=== PATIENT | female | born 1970 | race African-American/Black ===

== ENCOUNTER 2023-07-29 15:13 | Outpatient (CLI) | payer OTHER, SELFPAY ==
--- NOTE | ~2023-07-29 | XR_ITS ---
XR lumbar spine 6V w bending DATE: 07/29/2023 15:54 INDICATION: Back pain TECHNIQUE: AP, lateral, flexion and extension lateral, coned lateral lumbosacral and bilateral obliqu e views COMPARISON: None FINDINGS: There is 17 degrees levoscoliosis measured from T12 to L4. Diffuse osteopenia. No fracture or bone destruction. No instability on flexion or extension. The included lower thoracic and lumbar pedicles are intact. No spondylolysis or spondylolisthesis. Lumbar and lumbosacral interspaces appear well preserved. The sacroiliac joints are intact. IMPRESSION: 17 degrees levoscoliosis Osteopenia Reviewed, dictated and finalized at location L. PULATIVE THERAPY SPECIALIST
--- NOTE | ~2023-07-29 | XR_ITS ---
XR shoulder RT min 2V DATE: 07/29/2023 15:54 INDICATION: Right shoulder pain TECHNIQUE: 3 views COMPARISON: None FINDINGS: No fracture or dislocation, periosteal reaction or bone destruction. There is mild degenera tive change of the right acromioclavicular joint. Right cervical rib. No abnormal right shoulder soft tissue calcification. IMPRESSION: Right cervical rib Mild degenerative change at right acromioclavicular joint Reviewed, dictated and finalized at location L. LOPE PATTERNMAKER
--- NOTE | ~2023-07-29 | XR_ITS ---
XR hip BI 2V w AP pelvis DATE: 07/29/2023 15:54 INDICATION: Hip pain TECHNIQUE: AP pelvis. AP and lateral views of each hip. COMPARISON: None FINDINGS: Normal alignment at the pubic symphysis and sacroiliac joints. No pelvic fracture or bone d estruction is detected. No fracture or dislocation, avascular necrosis or bone destruction of either hip is detected. Mild as ymmetric left hip joint space narrowing. IMPRESSION: Mild asymmetric left hip joint space narrowing consistent with mild left hip osteoarthrit is Reviewed, dictated and finalized at location L. CS OFFICER IMPRESSION: Mild asymmetric left hip joint space narrowing consistent with mild left hip osteoarthritis
--- NOTE | ~2023-07-29 | XR_ITS ---
XR shoulder LT min 2V DATE: 07/29/2023 15:54 INDICATION: Left shoulder pain TECHNIQUE: 4 views COMPARISON: None FINDINGS: There is mild degenerative spurring at the left acromioclavicular joint. Mild narrowing at the left glenohumeral joint suggesting mild left glenohumeral osteoarthritis No fracture or dislocation, periosteal reaction or bone destruction or abnormal soft tissue calcifica tion of the left shoulder is evident. Left cervical rib. IMPRESSION: Left cervical rib Mild degenerative change of the left acromioclavicular joint and left glenohumeral joint Reviewed, dictated and finalized at location L. ING AND RESIDENCE LIFE DIRECTOR IMPRESSION: Left cervical rib Mild degenerative change of the left acromioclavicular joint and left glenohume ral joint
== END 2023-07-29 15:14 | disposition home or self-care (01) ==
LOC: ANHIMG 15:21
PROVIDERS: Visit Provider Anesthesiology Pain Medicine
DX: M25.511 Pain in right shoulder (principal); M54.9 Dorsalgia, unspecified; M46.1 Sacroiliitis, not elsewhere classified; M25.559 Pain in unspecified hip; M25.512 Pain in left shoulder; M41.86 Other forms of scoliosis, lumbar region; M85.88 Other specified disorders of bone density and structure, other site; Q76.5 Cervical rib
CPT/HCPCS: 72114; 73030; 73521

== ENCOUNTER 2023-11-23 09:07 | Outpatient (CLI) | payer OTHER, SELFPAY ==
--- NOTE | ~2023-11-23 | MR_ITS ---
MRI of the lumbar spine Clinical History: Spinal stenosis Technique: Axial T2-weighted images, and sagittal T1-weighted, T2-weighted, and and T2 fat-sat images were acquired. Findings: There is no fracture or subluxation of the lumbar spine. Vertebral bodies maintain normal h eight and alignment. No bone marrow signal abnormality seen. There is no significant disc bulge or herniation at any lumbar level. There is moderate facet arthrop athy at L1-L2. There is severe facet arthropathy throughout the remainder of the lumbar spine. No fra nk central canal stenosis seen. Probable minimal bilateral neural foraminal narrowing at L4-L5 and on the left side at L5-S1. Probable moderate neural foraminal narrowing of the right-sided L5-S1. Remai lida neural foramina appear intact. Paravertebral soft tissues are unremarkable. Impression: [id number] degenerative spondylosis, as above. Reviewed, dictated and finalized at [facility]. Impression: [id number] degenerative spondylosis, as above.
== END 2023-11-23 09:08 | disposition home or self-care (01) ==
PROVIDERS: Visit Provider Anesthesiology Pain Medicine
DX: M47.27 Other spondylosis with radiculopathy, lumbosacral region (principal)
CPT/HCPCS: 72148

== ENCOUNTER 2023-12-31 13:57 | Outpatient (CLI) | payer OTHER, SELFPAY ==
--- NOTE | ~2023-12-31 | MR_ITS ---
MRI of the cervical spine Clinical History: Cervical radiculopathy Technique: Axial T2-weighted and gradient images, and sagittal T1-weighted, T2-weighted, and STIR saúl ges were acquired. Findings: There is reversal normal cervical lordosis. Probable minimal grade 1 anterolisthesis of C4 on C5. No fracture seen. No suspicious bone marrow signal abnormality seen. At C2-C3, there is no significant disc bulge or herniation. No spinal canal stenosis, cord compressio n, or neural foraminal narrowing. At C3-C4, there is minimal disc osteophyte complex. No spinal canal stenosis, cord compression, or ne ural foraminal narrowing. At C4-C5, there is minimal disc osteophyte complex. There is no canal stenosis, cord compression, or neural foraminal narrowing. At C5-C6, there is moderate degenerative disc narrowing. There is mild disc osteophyte complex. Possi ble minimal flattening the ventral cord. Probable mild right neural foraminal narrowing. Left neural foramen preserved. At C6-C7, there is minimal disc osteophyte complex. No canal stenosis, cord compression, or neural fo raminal narrowing. No abnormal signal seen in the spinal cord. Paravertebral soft tissues are unremarkable. Impression: [id number] degenerative spondylosis at C5-C6, as detailed above. Reversal of the normal cervical lordosis. Reviewed, dictated and finalized at [facility]. Impression: [id number] degenerative spondylosis at C5-C6, as detailed above. Reversal of the normal cervical lordosis.
--- NOTE | ~2023-12-31 | XR_ITS ---
Cervical Spine: AP, lateral, oblique, open-mouth views Clinical History: Pain Findings: There is reversal normal cervical lordosis. No fracture or subluxation seen. There is moder ate degenerative disc narrowing at C4-C5 and C5-C6. No instability evident on flexion or extension. P re-vertebral soft tissues are unremarkable. Impression: Reversal of the normal cervical lordosis with degenerative disc disease at C4-C5 and C5-C6. Reviewed, dictated and finalized at location . Impression: Reversal of the normal cervical lordosis with degenerative disc disease at C4-C 5 and C5-C6.
== END 2023-12-31 13:58 | disposition home or self-care (01) ==
LOC: ANHIMG 14:02
PROVIDERS: Visit Provider Anesthesiology Pain Medicine
DX: M47.892 Other spondylosis, cervical region (principal); M40.50 Lordosis, unspecified, site unspecified; G89.29 Other chronic pain
CPT/HCPCS: 72050; 72141

== ENCOUNTER 2024-02-17 08:53 | Day surgery (SDC) | payer OTHER, SELFPAY ==
[2024-02-02 12:27] VITALS: BMI 24.9
--- NOTE | ~2024-02-17 | XR_ITS ---
EXAMINATION: XR fluoroscopy no charge DATE: 02/17/2024 09:57 INDICATION: Lumbosacral radiculopathy. TECHNIQUE: 101 intraoperative fluoroscopic views of the lumbar spine were obtained. I was not present . Fluoroscopy exposure time was 42 seconds. COMPARISON: Lumbar spine MRI 11/23/2023 FINDINGS: There is mild lumbar spondylosis. Bilateral transforaminal epidural injections are seen. IMPRESSION: 1. Bilateral transforaminal lumbar epidural injections. 2. Mild lumbar spondylosis. Reviewed, dictated and finalized at location A.
--- NOTE | 2024-02-17 08:30 | WPDHPUPDATE1 ---
History and Physical Update Update Date/Time: 02/17/24 08:30 History and Physical has been reviewed, including an updated exam of the patient. There are NO changes in the patient's condition. Risks, benefits, and alternatives have been discussed and questions answered. Patient agrees to proceed with procedure.
--- NOTE | 2024-02-17 08:32 | W.PM.PROC2 ---
Procedure Note - Detailed Date of Procedure 02/17/24 Pre-op Diagnosis Lumbosacral Radiculopathy Post-op Diagnosis Same Procedure Performed [Right Left] [Lumbar] Transforaminal Epidural Steroid Injection under Fluoroscopic Guidance and with Contrast Control at [L4-5, L5-S1]. Surgeon Kali Johnson MD Anesthesia Local Description of Procedure INFORMED CONSENT: Risks, benefits and alternatives to the procedure were discussed in detail with the patient who expressed explicit understanding and consent to proceed. Patient was informed verbally and in written form regarding the risks associated with the procedure including the low risk of serious infection, bleeding/bruising, allergic reaction, nerve or organ injury, paralysis, procedural site pain or discomfort, worsening pain and/or mobility, failure to treat and/or disfigurement. The patient expressed explicit understanding and consent to proceed. All materials required for the procedure were available prior to procedure start. Site and side was marked prior to procedure and confirmed in the presence of the patient. PROCEDURE IN DETAIL: The patient was brought to the procedural suite and placed in the prone position. Patient was made comfortable with use of pillows under the head/chest, hips and ankles. Skin overlying the injection site was prepared broadly with ChloraPrep applicator and draped in a sterile manner. Aseptic technique was employed throughout. The endplates of the vertebral body at the site of interest were aligned in the AP view. Ipsilateral oblique angulation was utilized to better visualize the neuroforamen of interest. Local anesthesia was established by infiltration with approximately 5 mL of 0.5% PF lidocaine via a 1-1/2 inch 27-gauge needle. A 22-gauge 3.5 inch Laex (pencil point) spinal needle was advanced until the needle approached the 6 o'clock position on the pedicle just superior to the exiting nerve root. on the right at L4-5. Lateral view was utilized to confirm appropriate position of the needle tip within the superior and posterior portion of the respective foramen. In an AP view, 1 mL of Omnipaque 300 contrast medium was injected after negative aspiration for CSF, blood or other bodily fluid, showing appropriate neurogram without evidence of intravascular or intrathecal spread of contrast. Digital subtraction imaging was used with an additional 1ml of the same contrast medium to confirm absence of intravascular contrast spread. A 1mL solution containing 3 mg of betamethasone was injected after negative repeat aspiration. Appropriate spread of the injectate was confirmed with washout of previously injected contrast. No parasthesias were elicited. Needle was removed completely intact without difficulty. [The same exact procedure was repeated for all remaining levels on the ipsilateral side, right L5-S1 neuroforamen, modified as necessary to accommodate for the new target location with identical findings and results and no evidence of complication.] [The same exact procedure was repeated for all remaining levels on the contralateral side, left L4-5, L5-S1 neuroforamen, modified as necessary to accommodate for the new target location with identical findings and results and no evidence of complication.] Images were saved and documented in the patient chart. Patient's skin was cleaned and sterile bandage applied. The patient tolerated the procedure well. The patient was transported to the recovery area in stable condition where they were observed for an appropriate amount of time prior to discharge, without evidence of complication. The patient was instructed to avoid excessive activity for the next 48 hours, including climbing and frequent use of stairs. Showers only for 48 hours. They were instructed not to drive or operate heavy machinery for 24 hours. They are to monitor for severe headaches, fevers, chills, night sweats, erythema/swelling at the site or any other signs of infection, bl
[2024-02-17 09:16] VITALS: BP 127/87; PULSE 63; RESP 18; TEMP 37.2; O2SAT 100; BMI 25.2
[2024-02-17 09:42] VITALS: BP 171/98; PULSE 63; RESP 15; O2SAT 97
[2024-02-17] MEDS: LIDOCAINE HCL 1% PF INJ 5 ML VIAL 3 ML INFILTRATE (09:45)
[2024-02-17 09:46] VITALS: BP 1611/67; PULSE 63; RESP 11; O2SAT 100
[2024-02-17 09:52] VITALS: BP 159/93; PULSE 63; RESP 12; O2SAT 100
[2024-02-17] MEDS: BETAMETHASONE SODIUM PHOSPHATE PF INJ 6 MG/ML VIAL 12 MG INFILTRATE (09:52)
[2024-02-17] MEDS: LIDOCAINE HCL 2% PF INJ 5 ML VIAL 2 ML INFILTRATE (09:52)
[2024-02-17 09:57] VITALS: BP 139/92; PULSE 68; RESP 14; O2SAT 100
== END 2024-02-17 10:14 | disposition home or self-care (01) ==
PROVIDERS: Visit Provider Anesthesiology Pain Medicine
PROC: (CPT 64483; principal; 2024-02-17 10:00)
DX: M54.17 Radiculopathy, lumbosacral region (principal)
CPT/HCPCS: 64483 ×2; 64484 ×2; 99199

== ENCOUNTER 2024-07-06 07:30 | Day surgery (SDC) | payer OTHER, SELFPAY ==
--- NOTE | ~2024-07-06 | XR_ITS ---
INTRAOPERATIVE FLUOROSCOPY: CLINICAL HISTORY: 53 years old Female; DIAG/PROG YENY L3,L4,L5 BRANCH/DORSAL RAMUS NERVE BLK PROCEDURE COMMENTS: Limited intraoperative fluoroscopy of the lumbar spine was performed. CUMULATIVE DOSE: 6.70 mGy FLUOROSCOPY TIME: 25.6 seconds FINDINGS/IMPRESSION: Intraoperative fluoroscopic views demonstrate contrast . Please refer to operative note for further details. Reviewed, dictated and finalized at location A. O TECHNICIAN
--- NOTE | 2024-07-06 05:47 | PM.HPGS ---
History of Present Illness History of Present Illness Consent: Risks, benefits, and alternatives have been discussed and questions answered. Patient agrees to proceed with procedure. Chief complaint: lumbosacral spondylosis, chronic low back pain Narrative: Celeste Montero is a 53 year old female with chronic, recalcitrant and disabling bilateral lumbosacral back pain secondary to degenerative spondylosis with failure to respond to aggressive conservative measures including PT, oral and topical analgesics, opioid and nonopioid analgesics, rest, time and activity/behavioral modification over the past 1-2 years who presents for diagnostic/prognostic medial branch blocks of the bilateral L3, L4, L5 medial branches/dorsal ramus(#1) addressing the ipsilateral L4-5, L5-S1 facet joints under fluoroscopic guidance and with contrast control. Review of Systems Review of Systems: Patient denies any new infectious, allergic, cardiopulmonary, neurologic or constitutional symptoms or changes in activity tolerance or exercise capacity including new or progressive SOB/MADISON, peripheral edema, productive cough, dysuria, nausea/vomiting, diarrhea, weight change, fevers/chills/night sweats, new or progressive neurologic deficit, cognitive or mood changes since last seen, except as documented in the HPI. All systems reviewed & are unremarkable except as noted in HPI and below PMFSH Past Medical History Medical History Anxiety Asthma Chronic back pain HTN (hypertension), benign Pernicious anemia Vitamin D deficiency Surgical History Surgical History H/O prior ablation treatment Family History Family History Grandparent Breast cancer Father Hypertension Mother Hypertension Social History Social History Smoking status: Never smoker Second hand tobacco smoke exposure: Yes Alcohol intake: current Alcohol use details: rarely, special occasions Substance use: never Substance use type: does not use Current Housing: Decline to Answer Concerned About Future Housing: Decline to Answer Difficulty Paying Gas/Electric Bills: Decline to Answer Difficulty Paying for Meds: Decline to Answer Currently Unemployed: Decline to Answer Education: Decline to Answer Difficulty w/ Childcare or Family Care: Decline to Answer Living arrangements: with family Spiritual care concerns: No Meds Home Medications and Allergies Home Medications ?Medication ?Instructions ?Recorded ?Confirmed ?Type gabapentin 300 mg capsule 300 mg PO TID 07/29/23 06/14/24 History hydrochlorothiazide 25 mg tablet 25 mg PO DAILY 07/29/23 06/14/24 History mecobalamin (vitamin B12) 10,000 10,000 mcg subcut MONTHLY 07/29/23 06/14/24 History mcg solution for injection meloxicam 15 mg tablet 15 mg PO DAILY 07/29/23 06/14/24 History omeprazole 40 mg capsule,delayed 40 mg PO DAILY 07/29/23 06/14/24 History release albuterol sulfate 90 mcg/actuation 2 puff inhalation Q4H PRN 02/02/24 06/14/24 History aerosol inhaler Shortness Of Breath cyclobenzaprine 10 mg tablet 10 mg PO ONCE 05/25/24 06/14/24 History Allergies Allergy/AdvReac Type Severity Reaction Status Date / Time Penicillins Allergy Hives Verified 06/14/24 13:43 Exam Narrative: The patient's physical exam is essentially unchanged from prior examination on 05/25/2024. Specifically, patient demonstrates normal lung capacity, tidal volume and respiratory rate without wheezes, crackles, rales or rubs. Heart rate and rhythm are regular without murmurs, gallops or rubs. No JVD. Pulses 2+ globally without increasing peripheral edema. AAOx3 with no evidence of confusion, intoxication or altered mental state, NC/AT without acute distress or altered consciousness. Speech, cognition, mood, insight and judgment at baseline and within normal limits. Assessment and Plan Assessment and plan (1) Lumbosacral spondylosis without myelopathy: Code(s): M47.817 - Spondylosis without myelopathy or radiculopathy, lumbosacral region Status: Acute (2) Chronic pain: Code(s): G89.29 - Other chronic pain Status: Acute (3) Dorsalgia: Code(s): M54.9 - Dorsalgia, unspecified Status: Acute Plan proceed as planned with diagnostic / prognostic lumbar medial branch blocks at L3, L4, L5 ( # 1) addressing the bilateral L4-5, L5-S1 facet joints under fluoroscopic guidance with contrast control to address chronic low back pain secondary to lumbosacral spondylosis
--- NOTE | 2024-07-06 05:50 | WPDHPUPDATE1 ---
History and Physical Update Update Date/Time: 07/06/24 05:50 History and Physical has been reviewed, including an updated exam of the patient. There are NO changes in the patient's condition. Risks, benefits, and alternatives have been discussed and questions answered. Patient agrees to proceed with procedure.
--- NOTE | 2024-07-06 05:51 | W.PM.PROC2 ---
Procedure Note - Detailed Date of Procedure 07/06/24 Pre-op Diagnosis lumbosacral spondylosis, chronic low back pain Post-op Diagnosis Same Procedure Performed Diagnostic bilateral Lumbar Medial Branch/Dorsal Ramus Blocks at L3, L4, L5 Treating the bilateral L4-5, L5-S1 Facet Joints Under Fluoroscopic Guidance and with Contrast Control. ( 4 levels blocked). Surgeon Kali Johnson MD Blower Room Attendant None. Anesthesia Local Description of Procedure INFORMED CONSENT: Risks, benefits and alternatives to the procedure were discussed in detail with the patient who expressed explicit understanding and consent to proceed. Patient was informed verbally and in written form regarding the risks associated with the procedure including the low risk of serious infection, bleeding/bruising, allergic reaction, nerve or organ injury, paralysis, procedural site pain or discomfort, worsening pain and/or mobility, failure to treat and/or disfigurement. The patient expressed explicit understanding and consent to proceed. All materials required for the procedure were available prior to procedure start. Site and side were marked prior to procedure and confirmed in the presence of the patient. PROCEDURE IN DETAIL: The patient was brought to the procedural suite and placed in the prone position. Patient was made comfortable with use of pillows under the head/chest, hips and ankles. Skin overlying the injection site on the affected side(s) was prepared broadly with ChloraPrep applicator and draped in a sterile manner. Aseptic technique was used throughout. The endplates of the vertebral bodies at the site(s) of interest were aligned in the AP view. Ipsilateral oblique angulation was utilized to optimize visualization of the intersection between the superior articulating process and transverse process at each target site. Local anesthesia was established by infiltration with approximately 5 mL of 1% lidocaine via a 1-1/2 inch 27-gauge needle. A 25-gauge 5.0 inch Quincke spinal needle was advanced until the needle tip contacted periosteum at the target site, right L3. Lateral view was utilized to confirm the appropriate placement of the needle tip just anterior to the facet line and superior to the pedicle. In the Lateral view, 0.25 mL of Omnipaque 300 contrast medium was injected after negative aspiration for CSF, blood or other bodily fluid, showing appropriate extra-articular spread of contrast without evidence of intravascular, foraminal or intrathecal placement. A 0.5 mL solution of 0.5% PF bupivacaine was injected after negative repeat aspiration. Appropriate spread of the injectate was confirmed with washout of previously injected contrast. No parasthesias were elicited. Needle was removed completely intact without difficulty. The same exact procedure was repeated for all remaining levels on the ipsilateral side, right L4, L5 medial branches/dorsal ramus, modified as necessary to accommodate for the new target location with identical findings and results and no evidence of complication. The same exact procedure was repeated for all remaining levels on the contralateral side, left L3, L4, L5 medial branches/dorsal ramus, modified as necessary to accommodate for the new target location with identical findings and results and no evidence of complication. Images were saved and documented in the patient chart. Patient's skin was cleaned and sterile bandage applied. The patient tolerated the procedure well. The patient was transported to the recovery area in stable condition where they were observed for an appropriate amount of time prior to discharge, without evidence of complication. Patient was instructed on the appropriate completion of a pain diary over the next 12-24 hours. The patient was instructed to avoid excessive activity for the next 48 hours, including climbing and frequent use of stairs. Showers only for 48 hours. They were instructed not to drive or operate heavy machinery for 24 hours. They are to monitor for severe headaches, fevers, chills, night sweats, erythema/swelling at the site or any other signs of infection, bleeding/bruising, bowel or bladder changes as well as new pain, weakness or numbness in the upper or lower extremity. Should they notice these changes, they are instructed to call our office immediately or report directly to the nearest Emergency Department if no answer or if after posted office hours. COMPLICATIONS: None COMMENTS: None CONTRAST WASTED: 28.5mL Omnipaque 300. Complications No immediate complications Condition Stable Disposition Same day [facility] Billing Surgery - Charge Forward: Surgery Billing
[2024-07-06 08:43] VITALS: BP 141/92; PULSE 89; RESP 18; O2SAT 100
[2024-07-06 09:26] VITALS: BP 150/93; PULSE 90; RESP 24; O2SAT 99
[2024-07-06 09:36] VITALS: BP 147/96; PULSE 82; RESP 25; O2SAT 100
[2024-07-06] MEDS: BUPivacaine HCL 0.5% 10 ML AMP INFILTRATE (09:38)
[2024-07-06] MEDS: LIDOCAINE 1% PF INJ 5 ML VIAL XX (09:38)
[2024-07-06 09:43] VITALS: BP 119/91; PULSE 78; RESP 16; O2SAT 100
--- OUTSIDE RECORDS SUMMARY | 2024-07-08 16:08 | XMS_ITS | Patient Health Summary ---
Author Organization [facility] Scientific Address [address] [place] [address] Care Team Providers Care User Experience Researcher Name Role Phone Warren Pardo MD Primary Care Provider [phone] Note from [facility],non-owned Affiliates and Associated Physician Practices is amultiple site organization consisting of ambulatory clinics and hospital sitesin [place], [place], [place] and [place]. This disclosure is being madepursuant to the Care Everywhere program and may not contain all information available regarding this patient. Last updated 18.[facility] Allergies * Penicillins(Rash,Itching) -Medium Criticality Medications * Be aware that medications may not be up to date on this document. Alwaysverify current medications with the patient. * albuterol HFA (PROVENTIL; VENTOLIN; PROAIR) 108 (90 Base) MCG/ACT inhaler (Started 08/30/2020) Inhale 2 puffs by mouth every 6 hours as needed * baclofen (LIORESAL) 10 MG tablet(Started 10/15/2021) Take 10 mg by mouth 3 times daily as needed * diphenhydrAMINE (BENADRYL) 25 MG capsule Take 25 mg by mouth as directed * vitamin D, ergocalciferol, (DRISDOL) 1.25 MG (73959 UT) capsule(Started 10/15/2021) Take 50,000 Units by mouth as directed * gabapentin (NEURONTIN) 300 MG capsule(Started 10/15/2021) Take 300 mg by mouth 3 times daily * hydroCHLOROthiazide (HYDRODIURIL) 25 MG tablet(Started 08/30/2021) Take 25 mg by mouth once daily * traMADol (ULTRAM) 50 MG tablet(Started 10/12/2021) Take 50 mg by mouth every 6 hours as needed * fluticasone propionate (FLONASE) 50 MCG/ACT nasal spray(Started 07/27/2021) Baker 1-2 sprays into each nostril once daily * meloxicam (Mobic) 15 MG tablet(Started 10/28/2023) TAKE 1 TABLET BY MOUTH EVERY DAY. DO NOT TAKE WITH NAPROXEN TABLETS 1 refill by 10/27/2024 Active Problems No known active problems Social History Tobacco Use Types Packs/Day Years Used Date Smoking Tobacco: Never Smokeless Tobacco: Never Sex and Gender Information Value Date Recorded Sex Assigned at Not on file Gender Identity Not on file Sexual Orientation Not on file Last Filed Vital Signs Vital Sign Reading Time Taken Comments Blood Pressure 115/81 11/19/2020 7:38 PM CDT Pulse 77 11/19/2020 7:38 PM CDT Temperature 36.8 ??C (98.3 ??F) 11/19/2020 7:38 PM CD T Respiratory Rate 16 11/19/2020 7:38 PM CDT Oxygen Saturation 100% 11/19/2020 7:38 PM CDT Inhaled Oxygen Concentration - - Weight 72.6 kg (160 lb) 11/19/2020 7:38 PM CDT Height 165.1 cm (5' 5 ) 11/19/2020 7:38 PM CDT Body Mass Index 26.63 11/19/2020 7:38 PM CDT Procedures * MRI SHOULDER RIGHT WO CONTRAST(Performed 01/03/2022) Performed for Right shoulder pain, unspecified chronicity * XR SHOULDER RIGHT 2VW OR MORE(Performed 11/07/2021) Performed for Right shoulder pain, unspecified chronicity * CARDIAC EKG ORDER(Performed 10/08/2018) * TROPONIN I(Performed 10/06/2018) * EKG 12-LEAD(Performed 10/06/2018) Performed for Chest pain, unspecified type * XR CHEST 2VW(Performed 10/06/2018) Performed for Chest pain, unspecified type * TROPONIN I(Performed 10/06/2018) * B-TYPE NATRIURETIC PEPTIDE(Performed 10/06/2018) * COMPREHENSIVE METABOLIC PANEL(Performed 10/06/2018) * CBC W AUTO DIFFERENTIAL(Performed 10/06/2018) * HCG URINE QUALITATIVE(Performed 10/06/2018) * URINALYSIS REFLEX MICROSCOPIC REFLEX CULTURE(Performed 10/06/2018) Results * MRI SHOULDER RIGHT WO CONTRAST (01/03/2022 7:31 AM CDT) Anatomical Region Laterality Modality Upper Extremity Magnetic Resonan ce 01/03/2022 8:28 AM CDT Impressions 01/03/2022 8:40 AM CDT Impression: 1. Normal rotator cuff. 2. Normal joints. This report was electronically signed by ANDRY FISHER MD ??on 01/03/2022 8:40 AM . Narrative 01/03/2022 8:40 AM CDT MRI right Shoulder ??without contrast History: Right shoulder pain Technique: ??Images were obtained in the axial, sagittal oblique, and coronal oblique planes using T1 and fluid sensitive pulse sequences without contrast Comparison: ??Right shoulder radiographs dated 11/07/2021. Findings: The acromioclavicular joint is intact. ??There is no acromioclavicular joint osteoarthritis. Glenohumeral alignment is normal. The articular cartilage is intact. ??No effusion is present. There is a paucity of synovial fluid. ??No glenoid labral tear is present. The rotator cuff tendons including the supraspinatus, infraspinatus, subscapularis, and teres minor are normal, without tendinosis or tear. The long head of the biceps anchor is intact, and the tendon is normal without tendinosis or tear. There is minimal fluid in the subacromial-subdeltoid bursa. ??Mild edema noted in the subcoracoid region (series 8 image 17). Marrow signal intensity is normal. ??Muscle bulk is normal. A 0.8 cm ovoid T2 hyperintense structure is present in the subcutaneous tissues dorsal to the medial aspect of the scapula, potentially a sebaceous cyst (series 6 image 21). Procedure Note Andry Fisher MD - 01/03/2022 MRI right Shoulder without contrast History: Right shoulder pain Technique: Images were obtained in the axial, sagittal oblique, and coronal oblique planes using T1 and fluid sensitive pulse sequences without contrast Comparison: Right shoulder radiographs dated 11/07/2021. Findings: The acromioclavicular joint is intact. There is no acromioclavicular joint osteoarthritis. Glenohumeral alignment is normal. The articular cartilage is intact. No effusion is present. There is a paucity of synovial fluid. No glenoid labral tear is present. The rotator cuff tendons including the supraspinatus, infraspinatus, subscapularis, and teres minor are normal, without tendinosis or tear. The long head of the biceps anchor is intact, and the tendon is normal without tendinosis or tear. There is minimal fluid in the subacromial-subdeltoid bursa. Mild edema noted in the subcoracoid region (series 8 image 17). Marrow signal intensity is normal. Muscle bulk is normal. A 0.8 cm ovoid T2 hyperintense structure is present in the subcutaneous tissues dorsal to the medial aspect of the scapula, potentially a sebaceous cyst (series 6 image 21). Impression: 1. Normal rotator cuff. 2. Normal joints. This report was electronically signed by ANDRY FISHER MD on01/03/2022 8:40 AM . Otilio Miller MD MR ORDERABLES * XR SHOULDER RIGHT 2VW OR MORE (11/07/2021 11:59 AM CDT) Anatomical Region Laterality Modality Upper Extremity Radiographic Terra ging 11/07/2021 1:17 PM CDT Impressions 11/07/2021 1:18 PM CDT IMPRESSION: Normal. This report was electronically signed by ANDRY FISHER MD ??on 11/07/2021 1:18 PM . Narrative 11/07/2021 1:18 PM CDT Exam: ??XR SHOULDER RIGHT 2VW OR MORE History: ??M25.511: Right shoulder pain, unspecified chronicity Comparison: None. Findings: No fracture or dislocation is present. The joint spaces are normal. No erosions are seen. ??Bone density is normal. ??The soft tissues are normal. Procedure Note Andry Fisher MD - 11/07/2021 Exam: XR SHOULDER RIGHT 2VW OR MORE History: M25.511: Right shoulder pain, unspecified chronicity Comparison: None. Findings: No fracture or dislocation is present. The joint spaces are normal. No erosions are seen. Bone density is normal. The soft tissues arenormal. IMPRESSION: Normal. This report was electronically signed by ANDRY FISHER MD on11/07/2021 1:18 PM . Otilio Miller MD DIAGNOSTIC IMAGING O RDERABLES * CARDIAC EKG ORDER (10/08/2018 12:41 AM CDT) Narrative 10/08/2018 12:41 AM CDT Ordered by an unspecified provider. Scanned Document CARDIAC SERVICES ORD ERABLES * TROPONIN I (10/06/2018 4:04 PM CDT) Only the most recent of2 resultswithin the time period is included. Troponin I <0.010 <0.038 ng/mL 10/06/2018 4:28 PM CDT [facility] Blood BLOOD SPECIMEN / Unknown Venipuncture / Unknown 10/06/2018 4:04 PM CDT 10/06/2018 4:04 PM CDT Narrative [facility] - 10/06/2018 4:28 PM CDT Note: Diagnosis of myocardial infarction requires symptoms of ischemia or EKG changes of ischemia and Troponin I >99th of normal (0.038 ng/mL). Troponin should be drawn on initial assessment and 3-6 hours later as clinically indicated. Any condition resulting in myocardial cell damage can increase cardiac troponin levels. In addition to myocardial infarction, these include but are not limited to congestive heart failure (CHF), arrhythmia, myocarditis, and non-cardiac related causes such as pulmonary embolism, renal failure and sepsis. Attention Clinician - Reference Range has changed Adelaide Welch APRN-STUDIO ASSISTANT LAB - CHEMI STRY ORDERABLES [facility] [address] [place] [address] * EKG 12-LEAD (10/06/2018 3:13 PM CDT) Ventricular Rate 59 BPM [facility] Atrial Rate 59 BPM [facility] P-R Interval 178 ms [facility] QRS Duration ms 78 ms [facility] Q-T Interval ms 450 ms [facility] QTC Calculation (Bezet) 445 ms [facility] Calculated P Brew[place] 46 degrees [facility] Calculated R Brewster 59 degrees [facility] Calculated T Brew[place] 49 degrees [facility] Interpretation EKG Sinus bradycardia Right atrial enlargement Cannot rule out Anteroseptal infarct , age undetermined Abnormal ECG No previous ECGs available Confirmed by Veronica Brewer ([id number]) on 10/07/2018 11:36:58 AM [facility] 10/06/2018 3:13 PM CDT 10/07/2018 11:36 AM CDT Adelaide Welch APRN-STUDIO ASSISTANT ECG ORDERAB LES [facility] * XR CHEST PA AND LATERAL (10/06/2018 2:06 PM CDT) Anatomical Region Laterality Modality Chest Radiographic Terra ging 10/06/2018 2:08 PM CDT Impressions 10/06/2018 2:08 PM CDT No acute disease. Reading Radiologist: Silas Esparza MD on 10/06/2018 at 2:08 PM Narrative 10/06/2018 2:08 PM CDT Chest Two Views History: Chest pain, unspecified. COMPARISON: None. FINDINGS: The lungs are clear without airspace consolidation or pulmonary edema. No pneumothorax or pleural effusion is seen. The cardiomediastinal contour is unremarkable. Procedure Note Silas Esparza MD - 10/06/2018 Chest Two Views History: Chest pain, unspecified. COMPARISON: None. FINDINGS: The lungs are clear without airspace consolidation or pulmonary edema. No pneumothorax or pleural effusion is seen. The cardiomediastinal contour is unremarkable. IMPRESSION No acute disease. Reading Radiologist: Silas Esparza MD on 10/06/2018 at 2:08 PM Adelaide Welch HYBRID POWERTRAIN DEVELOPMENT ENGINEER-STUDIO ASSISTANT DIAGNOSTIC IMAGING ORDERABLES * (ABNORMAL) CBC W AUTO DIFFERENTIAL (10/06/2018 1:55 PM CDT) [facility] WBC 4.3(L) 4.4 - 10.7 x10E9/L 10/06/2018 2:24 PM CDT [facility] WBC Corrected x10E9/L 10/06/2018 2:24 PM CDT [facility] RBC 5.45(H) 3.80 - 5.20 x10E12/L 10/06/2018 2:24 PM CDT [facility] Hemoglobin 15.4 12.0 - 15.6 gm/dL 10/06/2018 2:24 PM CDT [facility] Hematocrit 48.4(H) 35.9 - 45.5 % 10/06/2018 2:24 PM CDT [facility] MCV 88.8 80.7 - 98.3 fl 10/06/2018 2:24 PM CDT [facility] MCH 28.3 26.7 - 34.0 pg 10/06/2018 2:24 PM CDT [facility] MCHC 31.8 30.8 - 35.9 gm/dL 10/06/2018 2:24 PM CDT [facility] Platelet Count 286 153 - 416 x10E9/L 10/06/2018 2:24 PM CDT [facility] RDW-CV 12.9 12.1 - 14.9 % 10/06/2018 2:24 PM CDT [facility] MPV 9.5 9.4 - 12.9 fl 10/06/2018 2:24 PM CDT [facility] Neutrophils % 50.4 44.0 - 73.0 % 10/06/2018 2:24 PM CDT [facility] Lymphocytes % 38.3 20.0 - 43.0 % 10/06/2018 2:24 PM CDT [facility] Monocytes % 9.7 5.0 - 13.0 % 10/06/2018 2:24 PM CDT [facility] Eosinophils % 0.9 0.0 - 6.0 % 10/06/2018 2:24 PM CDT [facility] Basophils % 0.5 0.0 - 2.0 % 10/06/2018 2:24 PM CDT [facility] Immature Granulocytes 0.2 0 - 1 % 10/06/2018 2:24 PM CDT [facility] Neutrophil Absolute 2.17 2.01 - 7.14 x10E9/L 10/06/2018 2:24 PM CDT [facility] Lymphocytes Absolute 1.65 1.07 - 3.94 x10E9/L 10/06/2018 2:24 PM CDT [facility] Monocytes Absolute 0.42 0.26 - 1.07 x10E9/L 10/06/2018 2:24 PM CDT [facility] Eosinophils Absolute 0.04 0 - 0.47 x10E9/L 10/06/2018 2:24 PM CDT [facility] Basophils Absolute 0.02 0 - 0.08 x10E9/L 10/06/2018 2:24 PM CDT [facility] Immature Granulocytes Absolute 0.01 0.00 - 0.06 x10E9/L 10/06/2018 2:24 PM CDT [facility] nRBC Auto 0 /100 WBC 10/06/2018 2:24 PM CDT [facility] Blood BLOOD SPECIMEN / Unknown Venipuncture / Unknown 10/06/2018 1:55 PM CDT 10/06/2018 2:18 PM CDT Adelaide Welch APRNCHANNING HOME LAB - HEMAT OLOGY ORDERABLES Performing Organization Address [facility] Co de Phone Number [facility] [address] [place] [address] * B-TYPE NATRIURETIC PEPTIDE (10/06/2018 1:55 PM CDT) [facility] BNP <10 <=100 pg/mL 10/06/2018 2:46 PM CDT [facility] Blood BLOOD SPECIMEN / Unknown Venipuncture / Unknown 10/06/2018 1:55 PM CDT 10/06/2018 2:18 PM CDT Adelaide Welch [facility] LAB - CHEMI STRY ORDERABLES Performing Organization Address [facility]/ZIP Co de Phone Number [facility] [address] [place] [address] * (ABNORMAL) COMPREHENSIVE METABOLIC PANEL (10/06/2018 1:55 PM CDT) Pathologist [facility] Glucose 92 74 - 106 mg/dL 10/06/2018 2:36 PM CDT [facility] Sodium 136 136 - 145 mmol/L 10/06/2018 2:36 PM CDT [facility] Potassium 4.0 3.5 - 5.1 mmol/L 10/06/2018 2:36 PM CDT [facility] Chloride 100 98 - 107 mmol/L 10/06/2018 2:36 PM CDT [facility] CO2 26 23 - 31 mmol/L 10/06/2018 2:36 PM CDT [facility] Calcium 9.7 8.4 - 10.2 mg/dL 10/06/2018 2:36 PM CDT [facility] Anion Gap 10 8 - 16 mmol/L 10/06/2018 2:36 PM CDT [facility] BUN 12 7 - 18.7 mg/dL 10/06/2018 2:36 PM CDT [facility] Creatinine 0.75 0.55 - 1.02 mg/dL 10/06/2018 2:36 PM CDT [facility] Alkaline Phosphatase 84 40 - 150 U/L 10/06/2018 2:36 PM CDT [facility] ALT 11(L) 13 - 61 U/L 10/06/2018 2:36 PM CDT [facility] AST 18 5 - 34 U/L 10/06/2018 2:36 PM CDT [facility] Protein Total 8.2 6.4 - 8.3 gm/dL 10/06/2018 2:36 PM CDT [facility] Albumin 4.7 3.5 - 5.2 gm/dL 10/06/2018 2:36 PM CDT [facility] Bilirubin Total 0.5 0.2 - 1.0 mg/dL 10/06/2018 2:36 PM CDT [facility] eGFR by MDRD >60 >60 mL/min/1.7 3m2 10/06/2018 2:36 PM CDT [facility] eGFR by MDRD >60 >60 mL/min/1.7 3m2 10/06/2018 2:36 PM CDT [facility] Blood BLOOD SPECIMEN / Unknown Venipuncture / Unknown 10/06/2018 1:55 PM CDT 10/06/2018 2:18 PM CDT Adelaide Welch HYBRID POWERTRAIN DEVELOPMENT ENGINEER-STUDIO ASSISTANT LAB - CHEMI STRY ORDERABLES [facility] [address] [place] [address] * HCG URINE QUALITATIVE (10/06/2018 1:49 PM CDT) hCG Qualitative Urine Negative Negative 10/06/2018 2:27 PM CDT [facility] Urine URINE / Unknown Collection / Unknown 10/06/2018 1:49 PM CDT 10/06/2018 2:18 PM CDT Adelaide Welch HYBRID POWERTRAIN DEVELOPMENT ENGINEER-STUDIO ASSISTANT LAB - URINA LYSIS ORDERABLES Performing Organization Address [facility] Co de Phone Number [facility] [address] [place] [address] * (ABNORMAL) URINALYSIS REFLEX MICROSCOPIC REFLEX CULTURE (10/06/2018 1:41 PM CDT) Color UA Yellow Straw, Yellow 10/06/2018 2:25 PM CDT [facility] Clarity UA Slt Cloudy(A) Clear 10/06/2018 2:25 PM CDT [facility] Glucose UA Negative Negative 10/06/2018 2:25 PM CDT [facility] Bilirubin UA Negative Negative 10/06/2018 2:25 PM CDT [facility] Ketone UA Negative Negative 10/06/2018 2:25 PM CDT [facility] Specific [place] UA 1.020 1.005 - 1.030 10/06/2018 2:25 PM CDT [facility] Blood UA Negative Negative 10/06/2018 2:25 PM CDT [facility] pH UA 7.0 5.0 - 8.0 pH 10/06/2018 2:25 PM CDT [facility] Protein UA Negative Negative 10/06/2018 2:25 PM CDT [facility] Urobilinogen UA 2.0(A) Negative mg/dL 10/06/2018 2:25 PM CDT [facility] Nitrite UA Negative Negative 10/06/2018 2:25 PM CDT [facility] Leukocyte UA Negative Negative 10/06/2018 2:25 PM CDT [facility] Urine Microscopy Urine microscopy not indicated 10/06/2018 2:25 PM CDT [facility] Reflex Status Culture not indicated 10/06/2018 2:25 PM CDT [facility] Urine URINE SPECIMEN OBTAINED BY CLEAN CATCH PROCEDURE / Unknown Collection / Unknown 10/06/2018 1:41 PM CDT 10/06/2018 2:18 PM CDT Narrative [facility] - 10/06/2018 2:25 PM CDT Tellohermes Zazueta Yuri HYBRID POWERTRAIN DEVELOPMENT ENGINEER-STUDIO ASSISTANT LAB - URINA LYSIS ORDERABLES Performing Organization Address City/State/[facility] Co de Phone Number [facility] [address] [place] [address] Care Teams User Experience Researcher Relationship Specialty Start Date End Date Warren Pardo MD [address] [address] PCP - General Internal Medicine 10/06/18
--- OUTSIDE RECORDS SUMMARY | 2024-07-08 16:08 | XMS_ITS | Clinical Summary ---
Author Organization [facility] Address [address] [place] [address] Care Team Providers Care Product Strategy Director Name Role Phone Warren Pardo MD Primary Care Provider [phone] Source Comments [facility],non-owned Affiliates and Associated Physician Practices is amultiple site organization consisting of ambulatory clinics and hospital sitesin [place], [place], [place] and [place]. This disclosure is being madepursuant to the Care Everywhere program and may not contain all information available regarding this patient. Last updated 18.[facility] Allergies Active Allergy Reactions Criticality Noted Date Comments Penicillins Rash,Itching Medium 10/06/2018 Other reaction(s): Hives Medications * Be aware that medications may not be up to date on this document. Alwaysverify current medications with the patient. Medication Sig Dispensed Refills Start Date End Date Status albuterol HFA (PROVENTIL; VENTOLIN; PROAIR) 108 (90 Base) MCG/ACT inhaler Inhale 2 puffs by mouth every 6 hours as needed 08/30/2020 Active baclofen (LIORESAL) 10 MG tablet Take 10 mg by mouth 3 times daily as needed 10/15/2021 Active diphenhydrAMINE (BENADRYL) 25 MG capsule Take 25 mg by mouth as directed Active vitamin D, ergocalciferol, (DRISDOL) 1.25 MG (20318 UT) capsule Take 50,000 Units by mouth as directed 10/15/2021 Active gabapentin (NEURONTIN) 300 MG capsule Take 300 mg by mouth 3 times daily 10/15/2021 Active hydroCHLOROthiazide (HYDRODIURIL) 25 MG tablet Take 25 mg by mouth once daily 08/30/2021 Active traMADol (ULTRAM) 50 MG tablet Take 50 mg by mouth every 6 hours as needed 10/12/2021 Active fluticasone propionate (FLONASE) 50 MCG/ACT nasal spray [place] 1-2 sprays into each nostril once daily 07/27/2021 Active meloxicam (Mobic) 15 MG tablet TAKE 1 TABLET BY MOUTH EVERY DAY. DO NOT TAKE WITH NAPROXEN TABLETS 90 tablet 1 10/28/2023 Active Active Problems No known active problems Social [...] Mass Index 26.63 11/19/2020 7:38 PM CDT Plan of Treatment Health Maintenance Due Date Last Done Comments COLOGUARD (AGES 45-75) - COL ON CA SCREENING 1970 COLON MONITORING 1970 COLONOSCOPY - COLON CA SCREENING 1970 CT COLONOGRAPHY - COLON CA SCREENING 1970 Colorectal Cancer Screening 1970 FIT - COLON CA SCREENING 1970 FLEX SIG - COLON CA SCREENING 1970 LIPID TESTING 1970 MAMMOGRAM 1970 HIV SCREENING 1985 HEPATITIS C SCREENING 10/15/1988 DTAP/TDAP/TD VACCINES (1 - Tdap) 1989 HEPATITIS B VACCINE (1 of 3 - 19+ 3-dose series) 1989 PNEUMOCOCCAL VACCINE 50+ (1 of 1 - PCV) 2020 ZOSTER VACCINE (1 of 2) 2020 PAP SMEAR 09/13/2023 09/12/2020, 02/14/2019, 08/28/2018 COVID-19 VACCINE (1 - 2023-2 5 season) 2024 INFLUENZA VACCINE (#1) 2024 DEPRESSION SCREENING 06/16/2024 HIB VACCINE Aged Out No longer eligi ble based on patient's age to complete this topic HPV VACCINE Aged Out No longer eligi ble based on patient's age to complete this topic MENINGOCOCCAL (Group B) VACCINE Aged Out No longer eligible b ased on patient's age to complete this topic MENINGOCOCCAL VACCINE Aged Out No renate warner eligible based on patient's age to complete this topic PNEUMOCOCCAL VACCINE Aged Out No long er eligible based on patient's age to complete this topic Care Teams Product Strategy Director Relationship Specialty Start Date End Date Warren Pardo MD [address] [place] [address] [address] [place] [id number] PCP - General Internal Medicine 10/06/18
--- OUTSIDE RECORDS SUMMARY | 2024-07-08 16:08 | XMS_ITS | Clinical Summary ---
Author Organization [facility] Address [facility] [facility] [place] [address] [place] [address] Care Team Providers Care Reservoir Engineering Advisor Name Role Phone Warren Pardo MD Primary Care Provider [phone] Allergies Active Allergy Reactions Criticality Noted Date Comments Penicillins Hives 02/14/2019 Medications BANOPHEN 25 MG capsule TK 2 CS PO TID PRN 04/26/2020 Active vitamin D2, ergocalciferol, 54053 UNITS capsule TAKE ONE CAPSULE BY MOUTH EVERY 4 WEEKS 01/18/2021 Active gabapentin 300 MG capsule 01/19/2021 Active hydroCHLOROthia zide 12.5 MG tablet Take 12.5 mg by mouth every morning. Active lidocaine 4 % patch Place 1 patch onto the skin daily. Remove & Discard patch within 12 hours or as directed by MD 30 patch 03/07/2024 Active tiZANidine (ZANAFLEX) 4 MG tablet Take 1 tablet (4 mg total) by mouth every 8 (eight) hours as needed. 12 tablet 03/07/2024 Active HYDROcodone-alex taminophen (NORCO) 5-325 MG tabletIndicatio ns:Acute Pain < 3 Day Supply Take 1 tablet by mouth every 6 (six) hours as needed for Pain. Indications: Acute Pain < 3 Day Supply 8 tablet 03/07/2024 Active Active Problems No known active problems Family History Medical History Relation Comments Stroke Father CT Mother Relation Status Comments Father Mother Alive Social History Tobacco Use Types Packs/Day Years Used Date Smoking Tobacco: Never Smokeless Tobacco: Never Alcohol Use Standard Drinks/Week Comments Not Currently 0 (1 standard drink = 0.6 oz pur e alcohol) every other weekend AUDIT-C Answer Date Recorded Frequency of Alcohol Consumption Never 08/28/2018 Average Number of Drinks Not on file 019 Frequency of Binge Drinking Not on file 08/14 Comments No Sex and Gender Information Value Date Recorded Sex Assigned at Not on file Legal Sex Female 4:17 PM CDT Gender Identity Not on file Sexual Orientation Not on file Last Filed Vital Signs Vital Sign Reading Time Taken Comments Blood Pressure 138/79 03/07/2024 12:15 PM CDT Pulse 74 03/07/2024 12:15 PM CDT Temperature 36.4 ??C (97.5 ??F) 03/07/2024 1 0:48 AM CDT Respiratory Rate 18 03/07/2024 12:1 5 PM CDT Oxygen Saturation 99% 03/07/2024 12: 15 PM CDT Inhaled Oxygen Concentration - - Weight 69.7 kg (153 lb 10.6 oz) 024 10:48 AM CDT Height 165.1 cm (5' 5 ) 03/07/2024 10:4 8 AM CDT Body Mass Index 25.57 03/07/2024 10:48 AM CDT Plan of Treatment Health Maintenance Due Date Last Done Comments Cervical Cancer Screening Pa p Smear (Age 30 to 64) Every 3 Years 1970 Colorectal Cancer Screening Colonoscopy (10 Years) 1970 Annual Physical 1973 Hepatitis C 1988 DTaP, Tdap and Td Vaccines ( 1 - Tdap) 1989 Hepatitis B Vaccines (1 of 3 - 19+ 3-dose series) 1989 Cervical Cancer Screening Pa p with HPV Testing (Age 30 to 64) Every 5 Years 2000 Cervical Cancer Screening wi th HPV 2000 Mammogram Screening 2010 Zoster Vaccines (1 of 2) 2020 COVID-19 Vaccine (2023-2 5 season) 2024 03/02/2021, 02/05/2021 Influenza Adult (#1) 2024 Meningococcal Vaccine Aged Out No renate warner eligible based on patient's age to complete this topic Pneumococcal Vaccine: Pediatrics (0 to 5 Years) and At-Risk Patients (6 to 64 Years) Aged Out No longer eligible b ased on patient's age to complete this topic RSV Immunizations Under 20 Months Aged Out No longer eligible b ased on patient's age to complete this topic Insurance [employer] Advance Directives Documents on File Type Date Recorded Patient Burlap Man Expl anation Legal Documents 05/01/2020 12:31 PM RECVD & CMPLTD ATTY REQ. FOR HB BILLS FOR [employer] FOR [employer] Care Teams Reservoir Engineering Advisor Relationship Specialty Start Date End Date Warren Pardo MD [address] [address] PCP - General INTERNAL MEDICINE 02/14/19
--- OUTSIDE RECORDS SUMMARY | 2024-07-08 16:08 | XMS_ITS | Referral Summary ---
Author Organization [facility] Address [address] [place] [address] Care Team Providers Care Forging Press Lever Tender Name Role Phone Warren Pardo MD Primary Care Provider [phone] Source Comments [facility],non-owned Affiliates and Associated Physician Practices is amultiple site organization consisting of ambulatory clinics and hospital sitesin [place], [place], [place] and [place]. This disclosure is being madepursuant to the Care Everywhere program and may not contain all information available regarding this patient. Last updated 18.[facility] Allergies Active Allergy Reactions Criticality Noted Date [...] Active vitamin D, ergocalciferol, (DRISDOL) 1.25 MG (09501 UT) capsule Take 50,000 Units by mouth [...] fluticasone propionate (FLONASE) 50 MCG/ACT nasal spray [place] 1-2 sprays into each nostril once daily [...] 11/19/2020 7:38 PM CDT Plan of Treatment Not on file Care Teams Forging Press Lever Tender Relationship Specialty Start Date End Date Warren Pardo MD [address] [facility] [address] [place] [address] PCP - General Internal Medicine 10/06/18
--- OUTSIDE RECORDS SUMMARY | 2024-07-08 16:09 | XMS_ITS | Clinical Summary ---
Author Organization [place] [id number] [facility] Address [address] [place] [address] Care Team Providers Care Dude Ranch Manager Name Role Phone Warren Pardo MD Primary Care Provider [phone] Allergies Active Allergy Reactions Criticality Noted Date Comments Codeine Itching Low 06/27/2016 Itching Penicillins Hives Medium 04/26/2022 Pt states she can have derivatives just not plain penicillin Medications gabapentin (NEURONTIN) 300 mg capsule Take 1 capsule (300 mg total) by mouth 3 (three) times a day Active traMADoL (ULTRAM) 50 mg tablet Take 1 tablet (50 mg total) by mouth every 6 (six) hours as needed Active albuterol HFA (PROVENTIL HFA,VENTOLIN HFA,PROAIR HFA) 90 mcg/actuation inhaler INHALE 2 PUFFS BY MOUTH EVERY 4 HOURS DIRECTED 08/30/2020 Active ergocalciferol (VITAMIN D) 50,000 unit capsule Take 1 capsule (50,000 Units total) by mouth every 30 (thirty) days Active baclofen (LIORESAL) 10 mg tablet Take 1 tablet (10 mg total) by mouth 3 (three) times a day as needed for muscle spasms Active hydroCHLOROthia zide (HYDRODIURIL) 25 mg tablet Take 1 tablet (25 mg total) by mouth daily Active hydrOXYzine (ATARAX) 25 mg tablet Take 1 tablet 3 times a day by oral route as needed. Active meloxicam (MOBIC) 15 mg tablet TAKE 1 TABLET BY MOUTH EVERY DAY. DO NOT TAKE WITH NAPROXEN TABLETS 09/05/[address] (PROTONIX) 40 mg EC tablet Take 1 tablet (40 mg total) by mouth 2 (two) times a day 09/29/2023 Active tiZANidine (ZANAFLEX) 2 mg tablet TK 1 T PO Q 8 H PRN Active LORazepam (ATIVAN) 0.5 mg tabletIndicatio ns:Acute pain of left shoulder TAKE ONE TAB ONE HOUR PRIOR TO PROCEDURE, MAY REPEAT RIGHT BEFORE 2 tablet 12/16/2023 Active cyclobenzaprine (FLEXERIL) 10 mg tabletIndicatio ns:Spasm of muscle Take 1 tablet (10 mg total) by mouth 2 (two) times a day as needed for muscle spasms 60 tablet 1 05/18/2024 Active Active Problems No known active problems Encounters Date Type Department Care Team Description 05/18/2024 3:00 PM DEPARTMENT STORE SALESPERSON Office Visit [facility] Orthopaedic Surgery [address] [facility] 6[address] [place] [address] [place] [id number] Emiliano Pruitt MD Spasm of muscle (Primary Dx); Adhesive capsulitis of left shoulder from Last 3 Months Surgical History Surgery Date Site/Laterality Comments FLUORO GUIDED INJECTION SHOULDER LEFT 12/01/2023 Lef t FLUORO GUIDED INJECTION SHOULDER LEFT 03/22/2024 Lef t Medical History Medical History Date Comments Weight gain Blurred vision Wears glasses Hypertension Abnormal heart rhythm Swelling of both ankles Shortness of breath Asthma Heartburn Arthritis Muscle pain Headache Anxiety Heart murmur Family History Medical History Relation Name Comments Hypertension Brother Arthritis Mother Hypertension Mother Cancer Other Drug abuse Other Hypertension Other Relation Name Status Comments Brother Mother Other Social History Tobacco Use Types Packs/Day Years Used Date Smoking Tobacco: Never Tobacco Cessation:Counseling Given: Not Answered Comments No Sex and Gender Information Value Date Recorded Sex Assigned at Not on file Legal Sex Female 8:40 AM DEPARTMENT STORE SALESPERSON Gender Identity Not on file Sexual Orientation Not on file Obstetrics History Last Filed Vital Signs Vital Sign Reading Time Taken Comments Blood Pressure 145/89 03/22/2024 11:58 AM CDT Pulse 64 03/22/2024 11:58 AM CDT Temperature 36.8 ??C (98.2 ??F) 04/26/2022 12:[address] Respiratory Rate 16 03/22/2024 11:58 AM CDT Oxygen Saturation 99% 04/26/2022 6:00 PM DEPARTMENT STORE SALESPERSON Inhaled Oxygen Concentration - - Weight 68.8 kg (151 lb 9.6 oz) 03/01/2024 3:20 P M CDT Height 167 cm (5' 5.75 ) 03/01/2024 3:20 PM CDT Body Mass Index 24.66 03/01/2024 3:20 PM CDT Plan of Treatment Health Maintenance Due Date Last Done Comments Breast Cancer Screening-Mammogram 1970 Cervical Cancer Screening 1970 Colon Cancer Screening-Colonoscopy 1970 Depression Screening 1970 Hepatitis C Screening 1970 Pneumococcal vaccine <65 (1 of 2 - PCV) 1976 DTaP/Tdap/Td Vaccine (1 - Tdap) 1981 Hepatitis B Screening 1988 Regular Well Visit/Exam 18-64 1988 Zoster Vaccine (1 of 2) 2020 Covid-19 Vaccine (4 - season) 2024 03/14/2021, 03/02/2021, 02/05/2021 Influenza Vaccine (#1) 2024 Goals Goal Patient Goal Type Associated Problems Recent Progress Patient-Stated? Author CCM Chronic Pain Care Plan Chronic Care Management Worsening( 10:28 AM CDT) Stephanie Tyson, JOSE Note: Problem: Chronic Pain Goals: 1. Minimize further functional decline 2. Maximize quality of life 3. Control pain Strategies: - Activity/exercise program recommendation - Conservative stepwise pain medicine strategy with multi-disciplinary approach - Recommend healthy lifestyle strategies and compensatory methods as needed Insurance [facility] Care Teams Dude Ranch Manager Relationship Specialty Start Date End Date Warren Pardo MD PCP - General 01/18/19
--- OUTSIDE RECORDS SUMMARY | 2024-07-08 16:09 | XMS_ITS | Referral Summary ---
Author Organization [facility] [address] [facility] Address [address] [place] [address] Care Team Providers Care Terra Cotta Mold Maker Name Role Phone Warren Pardo MD Primary Care Provider [phone] Encounters Date Type Department Care Team Description 05/18/2024 3:00 PM GRAPHIC ART TECHNICIAN Office Visit [facility] Orthopaedic Surgery [facility] [address]th [place] [address] [place] [phone] Emiliano Pruitt MD Spasm of muscle (Primary Dx); Adhesive capsulitis of left shoulder from Last 3 Months Allergies Active Allergy Reactions Criticality Noted Date [...] on file Legal Sex Female 8:40 AM GRAPHIC ART TECHNICIAN Gender Identity Not on file Sexual Orientation Not on file Last Filed Vital Signs Vital Sign Reading Time Taken Comments Blood Pressure 145/89 03/22/2024 11:58 AM CDT Pulse 64 03/22/2024 11:58 AM CDT Temperature 36.8 ??C (98.2 ??F) 04/26/2022 12:[address] Respiratory Rate 16 03/22/2024 11:58 AM CDT Oxygen Saturation 99% 04/26/2022 6:00 PM GRAPHIC ART TECHNICIAN Inhaled Oxygen Concentration - - Weight 68.8 kg (151 lb 9.6 oz) 03/01/2024 3:20 P M CDT Height 167 cm (5' 5.75 ) 03/01/2024 3:20 PM CDT Body Mass Index 24.66 03/01/2024 3:20 PM CDT Plan of Treatment Not on file Goals Goal Patient Goal Type Associated Problems Recent Progress Patient-Stated? Author CCM Chronic Pain Care Plan Chronic Care Management Worsening( 10:28 AM CDT) Stephanie Tyson RN Note: Problem: Chronic Pain Goals: 1. Minimize further functional decline 2. Maximize quality of life 3. Control pain Strategies: - Activity/exercise program recommendation - Conservative stepwise pain medicine strategy with multi-disciplinary approach - Recommend healthy lifestyle strategies and compensatory methods as needed Insurance [employer] [facility] [employer] Care Teams Terra Cotta Mold Maker Relationship Specialty Start Date End Date Warren Pardo MD PCP - General 01/18/19
== END 2024-07-06 09:59 ==
LOC: ASC 08:22
PROVIDERS: Visit Provider Anesthesiology Pain Medicine
PROC: (CPT 64493; principal; 2024-07-06 09:30)
DX: M47.817 Spondylosis without myelopathy or radiculopathy, lumbosacral region (principal); G89.29 Other chronic pain
CPT/HCPCS: 64493 ×2; 64494 ×2; 64495 ×2; 99199

== ENCOUNTER 2024-10-26 12:49 | Outpatient (CLI) | payer OTHER, SELFPAY ==
--- NOTE | 2024-10-26 12:30 | ECG_ITS ---
Test Date: 2024-10-26 13:26:26 Measurements Intervals [place] Rate: 72 P: 84 MT: 178 QRS: 39 QRSD: 89 T: 33 QT: 414 QTc: 456 Interpretive Statements SINUS RHYTHM LEFT ATRIAL ENLARGEMENT [-0.15mV P WAVE IN V1/V2] NONSPECIFIC T WAVE ABNORMALITY WARNING: DATA QUALITY MAY AFFECT INTERPRETATION No previous ECG available for comparison Electronically Signed On 10-26-2024 15:08:00 CDT by Megan Crow M.D.
--- OUTSIDE RECORDS SUMMARY | 2024-10-26 13:03 | XMS_ITS | Clinical Summary ---
Author Organization [facility] [address] [facility] Address [address] [place] [address] Care Team Providers Care At Risk Paraprofessional Name Role Phone Warren Pardo MD Primary Care Provider [phone] Allergies Active Allergy Reactions Criticality Noted Date Comments Codeine Itching Low 06/27/2016 Itching Penicillins Hives Medium 04/26/2022 Pt states she can have derivatives just not plain penicillin Medications gabapentin (NEURONTIN) 300 mg capsuleIndicatio ns:Neuropathic Pain Take 1 capsule (300 mg total) by mouth 3 (three) times a day Active albuterol HFA (PROVENTIL HFA,VENTOLIN HFA,PROAIR HFA) 90 mcg/actuation inhaler Inhale 2 puffs every 4 (four) hours as needed for wheezing or shortness of breath Active ergocalciferol (VITAMIN D) 50,000 unit capsuleIndicatio ns:Vitamin D Deficiency Take 1 capsule (50,000 Units total) by mouth every 30 (thirty) days Active baclofen (LIORESAL) 10 mg tablet Take 1 tablet (10 mg total) by mouth 3 (three) times a day as needed for muscle spasms Active hydroCHLOROthiaz felice (HYDRODIURIL) 25 mg tabletIndication s:hypertension Take 1 tablet (25 mg total) by mouth every morning Active albuterol 2.5 mg/0.5 mL solution for nebulization Take 0.5 mL (2.5 mg total) by nebulization every 6 (six) hours as needed (SOB) Active omeprazole (PriLOSEC) 40 mg capsule Take by mouth daily Active oxyCODONE (ROXICODONE) 5 mg immediate release tabletIndication s:Pain Take 1 tablet (5 mg total) by mouth every 6 (six) hours as needed for pain 28 tablet 5 Active ketorolac (TORADOL) 10 mg tablet Take 1 tablet (10 mg total) by mouth every 6 (six) hours as needed for pain 12 tablet 5 Active senna-docusate (PERICOLACE) 8.6-50 mg Take 1 tablet by mouth 2 (two) times a day as needed for constipation 30 tablet 5 Active HYDROcodone-acet aminophen (NORCO) 5-325 mg per tabletIndication s:Pain Take 1-2 tablets by mouth every 6 (six) hours as needed for pain 20 tablet 5 Active cyclobenzaprine (FLEXERIL) 10 mg tabletIndication s:Spasm of muscle Take 1 tablet (10 mg total) by mouth 2 (two) times a day as needed for muscle spasms 30 tablet 5 Active Active Problems Problem Noted Date Diagnosed Date Subacromial bursitis of left shoulder joint 08/15 Nontraumatic incomplete tear of left rotator cuf f 09/07/2024 Adhesive capsulitis of left shoulder 07/12/2024 Left shoulder pain 07/12/2024 Encounters Date Type Department Care Team Description 09/22/2024 2:00 PM CDT Office Visit [facility] Orthopaedic Surgery [address] [place] [address] 2nd [address] [place] [address] Janine Andres MD Adhesive capsulitis of left shoulder (Primary Dx) 09/07/2024 10:37 AM CDT Anesthesia Event [facility] [address] [place] [id number] Fidel Martin MD Wilkinson, Christina A., NP 09/07/2024 9:45 AM CDT - 09/07/2024 11:30 AM CDT Surgery [facility] [address] [place] [id number] Janine Andres MD ARTHROSCOPY SHOULDER WITH EXTENSIVE DEBRIDEMENT, CAPSULUR RELEASE 09/07/2024 7:50 AM CDT - 09/07/2024 1:20 PM CDT Hospital Encounter [facility] [address] [place] [id number] Janine Andres MD Adhesive capsulitis of left shoulder (Primary Dx); Subacromial bursitis of left shoulder joint; Nontraumatic incomplete tear of left rotator cuff Discharge Disposition: Discharge to home or self care 09/07/2024 Telephone [facility] Orthopaedic Surgery [address] [address] [place] [address] [place] [address] Janine Andres MD 09/07/2024 Orders Only [facility] Orthopaedic Surgery [address] [place] [address] [place] [address] Janine Andres MD Adhesive capsulitis of left shoulder (Primary Dx); Left shoulder pain, unspecified chronicity from Last 3 Months Surgical History Surgery Date Site/Laterality Comments FLUORO GUIDED INJECTION SHOULDER LEFT 12/01/2023 Lef t FLUORO GUIDED INJECTION SHOULDER LEFT 03/22/2024 Lef t LASER ABLATION OF THE CERVIX 06/16/2017 - 06/15/2018 Medical History Medical History Date Comments Weight gain Blurred vision Wears glasses Hypertension Abnormal heart rhythm Swelling of both ankles Shortness of breath Asthma Heartburn Arthritis Muscle pain Headache Anxiety Heart murmur PONV (postoperative nausea and vomiting) controlled with IV medication Family History Medical History Relation Name Comments Hypertension Brother Arthritis Mother Hypertension Mother Cancer Other Drug abuse Other Hypertension Other Anesthesia problems Neg Hx Relation Name Status Comments Brother Mother Other Social History Tobacco Use Types Packs/Day Years Used Date Smoking Tobacco: Never Smokeless Tobacco: Never Tobacco Cessation:Counseling Given: Not Answered AUDIT-C Answer Date Recorded Q1: How often do you have a drink containing alc ohol? Monthly or less 09/07/2024 Q2: How many drinks containi ng alcohol do you have on a typical day when you are drinking? 1 or 2 09/07/2024 Q3: How often do you have si x or more drinks on one occasion? Less than monthly 09/07/2024 Personal Safety Answer Date Recorded Have you ever been in or are you currently in a harmful physical or emotional relationship or is someone making you feel afraid or unsafe? Denies 09/07/2024 Comments No Sex and Gender Information Value Date Recorded Sex Assigned at Not on file Legal Sex Female 8:40 AM BALANCER Gender Identity Not on file Sexual Orientation Not on file Obstetrics History Last Filed Vital Signs Vital Sign Reading Time Taken Comments Blood Pressure 137/90 09/07/2024 12:55 PM CDT Pulse 73 09/07/2024 12:55 PM CDT Temperature 36.6 C (97.9 F) 09/07/2024 12:04 PM CDT Respiratory Rate 18 09/07/2024 12:55 PM CDT Oxygen Saturation 98% 09/07/2024 12:55 PM CDT Inhaled Oxygen Concentration - - Weight 73.5 kg (162 lb) 09/07/2024 8:04 AM CDT Height 165.1 cm (5' 5 ) 09/07/2024 8:04 AM CDT Body Mass Index 26.96 09/07/2024 8:04 AM CDT Plan of Treatment Health Maintenance Due Date Last Done Comments Breast Cancer Screening-Mammogram 1970 Cervical Cancer Screening 1970 Colon Cancer Screening-Colonoscopy 1970 Depression Screening 1970 Hepatitis C Screening 1970 DTaP/Tdap/Td Vaccine (1 - Tdap) 1981 Hepatitis B Screening 1988 Regular Well Visit/Exam 18-64 1988 Pneumococcal vaccine <65 (1 of 2 - PCV) 1989 Zoster Vaccine (1 of 2) 2020 Covid-19 Vaccine ( - season) 2024 03/14/2021, 03/02/2021, 02/05/2021 Influenza Vaccine (Season Ended) 2025 Goals Goal Patient Goal Type Associated Problems [...] lifestyle strategies and compensatory methods as needed Procedures Procedure Name Priority Date/Time Associated Diagnosis Comments AK AN PROCEDURE PLACEHOLDER Routine 09/07/2024 10:45 AM CDT AK AN ELECTIVE SUPRAGLOTTIC AIRWAY Routine 09/07/2024 10:45 AM CDT ARTHROSCOPIC RELEASE - CAPSULAR 09/07/2024 10:40 AM CDT Adhesive capsulitis of left shoulder Left shoulder pain, unspecified chronicity Special Needs Beach Chair with Trimano, Breg Sling Shot ARTHROSCOPY SHOULDER WITH EXTENSIVE DEBRIDEMENT 09/07/2024 10:40 AM CDT Adhesive capsulitis of left shoulder Left shoulder pain, unspecified chronicity Special Needs Beach Chair with Trimano, Breg Sling Shot AK AN PROCEDURE PLACEHOLDER Routine 09/07/2024 9:33 AM CDT BW IP ANE LDA PERIPHERAL NERVE CATHETER Routine 09/07/2024 9:33 AM CDT POCT PREOP SCREEN ([id number]- HBG-HCT) Routine 09/07/2024 8:32 AM CDT POCT HCG, URINE Routine 09/07/2024 7:55 AM CDT from Last 3 Months Results * AK AN ELECTIVE SUPRAGLOTTIC AIRWAY, AK AN PROCEDURE PLACEHOLDER (09/07/2024 10:45 AM CDT) Narrative Edita Hammond CRNA - 09/07/2024 10:45 AM CDT Edita Hammond CRNA 09/07/2024 10:47 AM Airway Patient location: OR Urgency: elective Indications for airway management: anesthesia Difficult airway: no Emergent airway documentation: Risks and benefits discussed: yes Consent obtained: yes Consent given by: patient Airway prep: Preoxygenated: yes Mask difficulty assessment: 0 - not attempted Spontaneous ventilation during airway: absent Sedation level during airway: GA Final airway details: Final airway type: supraglottic airway Final supraglottic airway: unique SGA size: 4 Number of attempts: 1 Ventilation between attempts: none us Fidel Martin MD ANESTHESIA ORDERABLES Beatriz l Result * BW IP ANE LDA PERIPHERAL NERVE CATHETER, AK AN PROCEDURE PLACEHOLDER (09/07/2024 9:33 AM CDT) Narrative Fidel Martin MD - 09/07/2024 9:33 AM CDT Fidel Martin MD 09/07/2024 9:33 AM Peripheral Block Patient location during procedure: pre-op holding Reason for block: post-op pain management per surgeon request Ultrasound image in chart or stored: yes Block type: catheter continuous infusion Laterality: left Block type: brachial plexus - interscalene Procedure prep: Preprocedure checklist: patient identified, procedure contraindications assessed, site marked, procedure consent, surgical consent, IV checked, risks, benefits and alternatives discussed, monitors and equipment checked and timeout performed Patient position: sitting and head of bed elevated Procedure performed while patient: sedate with meaningful contact Monitoring: oximetry Supplemental O2: nasal cannula Prep solution: chlorhexidine/alcohol PPE: provider hat/mask, sterile gloves, sterile drape and sterile probe cover and gel Skin infiltrated with lidocaine 1%: yes Peripheral nerve block: Technique: ultrasound guided Needle type: insulated, short-bevel and echogenic Needle gauge: 21 G [email or web address] [email or web address] [id number]) Injection assessment: injection made incrementally with constant monitoring, local visualized surrounding nerve on ultrasound, negative aspiration for heme, no paresthesias noted, normal resistance to injection and see flowsheet for medication details Catheter: Catheter type: 20g non-stimulating catheter and catheter over needle Other catheter type: Pajunk E-Catheter Catheter over needle length: 51 Catheter placement details: catheter position confirmed by ultrasound, no aspiration of heme, negative test dose, steri-strips, occlusive dressing applied and mastisol Assessment: Block success: full evaluation pending Events: patient tolerated procedure well with no complications us Fidel Martin MD ANESTHESIA ORDERABLES Beatriz l Result * POCT Preop screen ([id number]) (09/07/2024 8:32 AM CDT) [facility] K POC 3.9 3.3 - 4.9 mmol/L Comment: Interpretive Data This method is not able to assess for hemolysis, which may falsely increase potassium concentrations. If further testing is needed to evaluate this result, consider in-laboratory plasma potassium. Current Interpretive Data was last revised on 2022. Blood 09/07/2024 8:32 AM CDT 09/07/2024 8:32 AM CDT us Janine Andres MD LAB POCT ORDERABLES - DEVICE Final Result [facility] Department [place] [address] * POCT hCG, urine (09/07/2024 7:55 AM CDT) HCG, ur, POC Negative Negative Lot Number 123 QC Backgroud Clear Acceptable QC Control Line Acceptable Urine 09/07/2024 7:55 AM CDT us Eyad Sotelo MD POINT OF CARE TEST ORDER TITA Final Result from Last 3 Months Insurance [facility] Care Teams At Risk Paraprofessional Relationship Specialty Start Date End Date Warren Pardo MD PCP - General 01/18/19
--- OUTSIDE RECORDS SUMMARY | 2024-10-26 13:03 | XMS_ITS | Clinical Summary ---
Author Organization [facility] Address [address] [place] [address] Care Team Providers Care Acid Pump Operator Name Role Phone Warren Pardo MD Primary Care Provider [phone] Allergies Active Allergy Reactions Criticality Noted Date Comments Penicillins Hives 02/14/2019 Medications gabapentin 300 MG capsule Take 1 capsule (300 mg total) by mouth 3 (three) times daily. 1 Active albuterol sulfate HFA 108 (90 Base) MCG/ACT inhaler Inhale 2 puffs into the lungs every 4 (four) hours as needed for Wheezing or Shortness of breath. 5 Active omeprazole (PRILOSEC) 40 MG capsule Take 1 capsule (40 mg total) by mouth daily. 5 Active meloxicam (MOBIC) 15 MG tablet Take 1 tablet (15 mg total) by mouth daily. 5 Active traMADol (ULTRAM) 50 MG tablet Take 2 tablets (100 mg total) by mouth every 6 (six) hours as needed for Pain. Active hydroCHLOROthia zide (HYDRODIURIL) 25 MG tablet Take 0.5 tablets (12.5 mg total) by mouth daily. Active cyclobenzaprine (FLEXERIL) 10 MG tablet Take 1 tablet (10 mg total) by mouth 2 (two) times daily as needed for Muscle Spasms. Active Active Problems Problem Noted Date Diagnosed Date Asthma (HHS/HCC) 07/29/2024 Encounters Date Type Department Care Team Description 07/29/2024 11:14 AM SOLID TIRE FINISHER - 07/30/2024 1:24 PM [facility] Hospital Encounter [place] [address] [place] [address] Chester Locke MD Nash, Anne N, MD Shortness Of Breath Discharge Disposition: Home or Self Care (Routine Discharge) 07/29/2024 Travel from Last 3 Months Family History Medical History Relation Comments Stroke Father [place] Mother Relation Status Comments Father Mother Alive Social History Tobacco Use Types Packs/Day Years Used Date Smoking Tobacco: Never Smokeless Tobacco: Never Alcohol Use Standard Drinks/Week Comments Yes 0 (1 standard drink = 0.6 oz pur e alcohol) occasionally [id number] Health Literacy Answer Date Recor ded How often do you need to hav e someone help you when you read instructions, pamphlets, or other written material from your doctor or pharmacy? Never 07/29/2024 [facility] Utilities Answer Date Recorded In the past 12 months has th e electric, gas, oil, or water company threatened to shut off services in your home? No 07/29/2024 Humiliation, Afraid, Rape, and Kick questionnair e Answer Date Recorded Within the last year, have y ou been afraid of your partner or ex-partner? No 07/29/2024 Within the last year, have y ou been humiliated or emotionally abused in other ways by your partner or ex-partner? No Within the last year, have y ou been kicked, hit, slapped, or otherwise physically hurt by your partner or ex-partner? No 07/29/2024 Within the last year, have y ou been raped or forced to have any kind of sexual activity by your partner or ex-partner? No 07/29/2024 Social Connection and Isolat ion Panel [NHANES] Answer Date Recorded In a typical week, how many times do you talk on the phone with family, friends, or neighbors? More than three times a week 07/29/2024 How often do you get togethe r with friends or relatives? Twice a week 07/29/2024 How often do you attend chur or protestant services? More than 4 times per year 07/29/2024 Do you belong to any clubs o r organizations such as mu-ism groups, unions, fraternal or athletic groups, or school groups? Yes 07/29/2024 How often do you attend meet ings of the clubs or organizations you belong to? More than 4 times per year 07/29/2024 Are you , , di vorced, , never , or living with a partner? 07/29/2024 AUDIT-C Answer Date Recorded Q1: How often do you have a drink containing alc ohol? 2-4 times a month 07/29/2024 Q2: How many drinks containi ng alcohol do you have on a typical day when you are drinking? 1 or 2 07/29/2024 Q3: How often do you have si x or more drinks on one occasion? Never 07/29/2024 Overall Financial Resource Strain (CARDIA) Answe r Date Recorded How hard is it for you to pa y for the very basics like food, housing, medical care, and heating? Somewhat hard 07/29/2024 [facility] of Occupat ional Health - Occupational Stress Questionnaire Answer Date Recorded Do you feel stress - tense, restless, nervous, or anxious, or unable to sleep at night because your mind is troubled all the time - these days? Only a little 07/29/2024 Exercise Vital Sign Answer Date Recorde d On average, how many days pe r week do you engage in moderate to strenuous exercise (like a brisk walk)? 0 days 07/29/2024 On average, how many minutes do you engage in exercise at this level? 0 min 07/29/2024 Hunger Vital Sign Answer Date Recorded Within the past 12 months, y ou worried that your food would run out before you got the money to buy more. Never true 07/29/19 25 Within the past 12 months, t he food you bought just didn't last and you didn't have money to get more. Never true 07/29/2024 PRAPARE - Transportation Answer Date Re corded In the past 12 months, has l ack of transportation kept you from medical appointments or from getting medications? No 07/17 In the past 12 months, has l ack of transportation kept you from meetings, work, or from getting things needed for daily living? No 07/29/2024 Housing Stability Vital Sign Answer Anibal e Recorded In the last 12 months, was t here a time when you were not able to pay the mortgage or rent on time? No 07/29/2024 In the past 12 months, how m any times have you moved where you were living? 1 07/29/2024 At [facility] time in the [facility] were you homeless or living in a longterm (including now)? No 07/29/2024 Comments No Sex and Gender Information Value Date Recorded Sex Assigned at Female 07/29/2024 11:15 AM SOLID TIRE FINISHER Legal Sex Female 4:17 PM CDT Gender Identity Not on file Sexual Orientation Not on file Last Filed Vital Signs Vital Sign Reading Time Taken Comments Blood Pressure 126/79 07/30/2024 11:22 AM SOLID TIRE FINISHER Pulse 90 07/29/2024 12:10 PM SOLID TIRE FINISHER Temperature 36.7 C (98.1 F) 07/30/2024 11:22 AM SOLID TIRE FINISHER Respiratory Rate 20 07/30/2024 5:50 AM SOLID TIRE FINISHER Oxygen Saturation 98% 07/30/2024 11: 22 AM SOLID TIRE FINISHER Inhaled Oxygen Concentration - - Weight 73.9 kg (162 lb 14.7 oz) 025 11:20 AM SOLID TIRE FINISHER Height 165.1 cm (5' 5 ) 07/29/2024 11:2 0 AM SOLID TIRE FINISHER Body Mass Index 27.11 07/29/2024 11:20 AM SOLID TIRE FINISHER Plan of Treatment Health Maintenance Due Date Last Done Comments Cervical Cancer Screening Pa p Smear (Age 30 to 64) Every 3 Years 1970 Colorectal Cancer Screening Colonoscopy (10 Years) 1970 Annual Physical 1973 Hepatitis C 1988 DTaP, Tdap and Td Vaccines ( 1 - Tdap) 1989 Hepatitis B Vaccines (1 of 3 - 19+ 3-dose series) 1989 Pneumococcal Vaccine: 50+ Years (1 of 2 - PCV) 1989 Cervical Cancer Screening Pa p with HPV Testing (Age 30 to 64) Every 5 Years 2000 Cervical Cancer Screening wi HPV 2000 Mammogram Screening 2010 Zoster Vaccines (1 of 2) 2020 COVID-19 Vaccine (3 - 2023-2 5 season) 2024 03/02/2021, 02/05/2021 Meningococcal B Vaccine Aged Out No l onger eligible based on patient's age to complete this topic Meningococcal Vaccine Aged Out No renate warner eligible based on patient's age to complete this topic RSV Immunizations Under 20 Months Aged Out No longer eligible b ased on patient's age to complete this topic Procedures Procedure Name Priority Date/Time Associated Diagnosis Comments BASIC METABOLIC PANEL Routine 07/30/2024 6:00 AM SOLID TIRE FINISHER CBC W/DIFF AUTOMATED Routine 07/30/2024 6:00 AM SOLID TIRE FINISHER ECG 12-LEAD Routine 07/29/2024 12:19 PM SOLID TIRE FINISHER CORONAVIRUS (COVID 19) STAT 12:04 PM SOLID TIRE FINISHER INFLUENZA A & B STAT 07/29/2024 12:00 PM SOLID TIRE FINISHER XR CHEST PORTABLE STAT 07/29/2024 11: 55 AM SOLID TIRE FINISHER PROCALCITONIN (PCT) STAT 07/29/2024 1 1:37 AM SOLID TIRE FINISHER TROPONIN, QUANT STAT 07/29/2024 11:37 AM SOLID TIRE FINISHER COMPREHENSIVE METABOLIC PANEL STAT 07/29/2024 11:37 AM SOLID TIRE FINISHER CBC W/DIFF AUTOMATED STAT 07/29/2024 11:37 AM SOLID TIRE FINISHER CRITICAL CARE Routine 07/29/2024 11:25 AM SOLID TIRE FINISHER from Last 3 Months Results * (ABNORMAL) BASIC METABOLIC PANEL (07/30/2024 6:00 AM SOLID TIRE FINISHER) GLUCOSE 120(H) 70 - 99 MG/DL 07/30/2024 6:44 AM SOLID TIRE FINISHER [facility] BUN 10 7 - 18 MG/DL 07/30/2024 6:44 AM SOLID TIRE FINISHER [facility] CREATININE S/P/B 0.58 0.55 - 1.02 MG/DL 07/30/2024 6:44 AM [facility] SODIUM S/P/B 135(L) 136 - 145 MMOL/L 07/30/2024 6:44 AM [facility] POTASSIUM S/P/B 3.2(L) 3.5 - 5.1 MMOL/L 07/30/2024 6:44 AM [facility] CHLORIDE S/P/B 106 97 - 115 MMOL/L 07/30/2024 6:44 AM [facility] CO2 23.8 21 - 32 MMOL/L 07/30/2024 6:44 AM [facility] CALCIUM S/P/B 8.7 8.5 - 10.1 MG/DL 07/30/2024 6:44 AM [facility] ANION GAP 5.2 2 - 10 MMOL/L 07/30/2024 6:44 AM [facility] BUN CREATININE RATIO 17.2 6 - 26 07/30/2024 6:44 AM [facility] GFR ESTIMATE >90 >90 ML/MIN/1.7 3 M2 07/30/2024 6:44 AM [facility] Comment: NOTE: eGFR is not calculated for patients <18 years of age or gender unknown. This is an estimated GFR calculation using the new CKD EPI creatinine equation without race and so does not require a correction factor for race. This estimated GFR should not be used for calculating drug doses. 07/30/2024 6:00 AM SOLID TIRE FINISHER us Cooper Waller MD LABORATORY Final Result [facility] [address] [place] [address], [place] [phone] * (ABNORMAL) CBC W/DIFF AUTOMATED (07/30/2024 6:00 AM SOLID TIRE FINISHER) Only the most recent of2 resultswithin the time period is included. WBC 3.58(L) 4.5 - 11.0 x10'3/uL 07/30/2024 6:32 AM [facility] RBC 5.37 4.20 - 5.40 x10'6/uL 07/30/2024 6:32 AM [facility] HGB 14.8 12.0 - 16.0 G/DL 07/30/2024 6:32 AM [facility] HCT 45.3 38.0 - 48.0 % 07/30/2024 6:32 AM [facility] MCV 84.4 81.0 - 99.0 FL 07/30/2024 6:32 AM [facility] MCH 27.6 27.0 - 31.0 PG 07/30/2024 6:32 AM [facility] MCHC 32.7 32.0 - 36.0 G/DL 07/30/2024 6:32 AM [facility] RDW 13.2 11.5 - 14.5 % 07/30/2024 6:32 AM [facility] PLT 256 130 - 400 x10'3/uL 07/30/2024 6:32 AM [facility] MPV 8.9(L) 9.3 - 12.2 FL 07/30/2024 6:32 AM [facility] DIFFERENTIAL TYPE AUTOMATED DIFFERENTIAL 07/30/2024 6:32 AM [facility] NEUTROPHILS % 44.9 % 07/30/2024 6:32 AM [facility] LYMPHOCYTES % 36.6 % 07/30/2024 6:32 AM [facility] MONOCYTES % 17.9 % 07/30/2024 6:32 AM [facility] EOSINOPHILS 0.0 % 07/30/2024 6:32 AM SOLID TIRE FINISHER [facility] BASOPHILS 0.3 % 07/30/2024 6:32 AM [facility] IMMATURE GRANS % 0.3 % 07/30/19 6:32 AM [facility] ABS. NEUTROPHILS 1.61(L) 1.80 - 7.70 x10'3/uL 07/30/2024 6:32 AM SOLID TIRE FINISHER [facility] ABS. LYMPHOCYTES 1.31 1.00 - 4.80 x10'3/uL 07/30/2024 6:32 AM [facility] ABS. MONOCYTES 0.64 0.24 - 0.86 x10'3/uL 07/30/2024 6:32 AM [facility] ABS. EOSINOPHILS 0.00(L) 0.04 - 0.36 x10'3/uL 07/30/2024 6:32 AM [facility] ABS. BASOPHILS 0.01 0.01 - 0.08 x10'3/uL 07/30/2024 6:32 AM [facility] ABS. IMMATURE GRANULOCYTES 0.01 0.00 - 0.49 x10'3/uL 07/30/2024 6:32 AM [facility] 07/30/2024 6:00 AM SOLID TIRE FINISHER us Cooper Waller MD LABORATORY Final Result [facility] [address] [place] [address], [place] [phone] * ECG 12 lead (07/29/2024 12:19 PM SOLID TIRE FINISHER) 07/29/2024 12:1 9 PM SOLID TIRE FINISHER Narrative [facility] ([facility]) RAD - 07/29/2024 2:31 [address] SOLID TIRE FINISHER [facility] [address] [place], [place] [address]lexie [place] Test Date: 2024-07-29 Pat Name: CELESTE MONTERO Department: 41 Room: [place] [address] Gender: Female Telecommunications Manager: [id number] : 1970 Requested By: CHESTER LOCKE Order Number: [id number] Reading MD: Saul Sanchez Measurements Intervals [place] Rate: 89 P: 89 AL: 179 QRS: 48 QRSD: 90 T: 48 QT: 385 QTc: 471 Interpretive Statements SINUS RHYTHM WITH OCCASIONAL SUPRAVENTRICULAR PREMATURE COMPLEXES LEFT ATRIAL ENLARGEMENT [-0.15mV P WAVE IN V1/V2] Compared to ECG 05/19/2019 11:23:12 No significant changes No ischemic changes Preliminary EKG Interpretation by Chester Locke M.D D TIRE FINISHER Procedure Note Saul Sanchez MD - 07/29/2024 [facility] [address] [facility] [place] Test Date: 2024-07-29 Pat Name: CELESTE MONTERO Department: 41 Room: [place] [address] Gender: Female Telecommunications Manager: [id number] : 1970 Requested By: CHESTER LOCKE Order Number: [id number] Reading MD: Saul Sanchez Measurements Intervals [place] Rate: 89 P: 89 AL: 179 QRS: 48 QRSD: 90 T: 48 QT: 385 QTc: 471 Interpretive Statements SINUS RHYTHM WITH OCCASIONAL SUPRAVENTRICULAR PREMATURE COMPLEXES LEFT ATRIAL ENLARGEMENT [-0.15mV P WAVE IN V1/V2] Compared to ECG 05/19/2019 11:23:12 No significant changes No ischemic changes Preliminary EKG Interpretation by Chester Locke M.D D TIRE FINISHER us Chester Locke MD ECG ORDERABLES Final Result [facility] ([facility] * CORONAVIRUS (COVID 19) (07/29/2024 12:04 PM SOLID TIRE FINISHER) CORONAVIRUS SARS COV 2 RNA NEGATIVE NEGATIVE 07/29/2024 12:47 PM SOLID TIRE FINISHER [facility] Comment: NEGATIVE RESULTS DO NOT RULE OUT COVID 19 AND SHOULD NOT BE USED THE SOLE BASIS FOR TREATMENT OR PATIENT MANAGEMENT DECISIONS, INCLUDING INFECTION CONTROL DECISIONS. NEGATIVE RESULTS SHOULD BE CONSIDERED IN THE CONTEXT OF A PATIENT'S RECENT EXPOSURES, HISTORY AND THE PRESENCE OF CLINICAL SIGNS AND SYMPTOMS CONSISTENT WITH COVID 19. THE ID NOW COVID-19 2.0 TEST HAS BEEN AUTHORIZED BY THE FDA UNDER EAU FOR USE BY AUTHORIZED LABORATORIES. PERFORMED BY NUCLEIC ACID AMPLIFICATION FOR MOLECULAR QUALITATIVE DETECTION OF SARS-COV-2. SPECIMEN TYPE NASAL 07/29/2024 12:05 PM SOLID TIRE FINISHER [facility] NASAL STRUCTURE / Unknown 07/29/2024 12:04 PM SOLID TIRE FINISHER Chester Locke MD MICROBIOLOGY - GENERAL ORDERA BLES Final Result [facility] [address] [place] [address], * INFLUENZA A & B (07/29/2024 12:00 PM SOLID TIRE FINISHER) SPECIMEN TYPE NASAL 07/29/2024 12:17 PM SOLID TIRE FINISHER [facility] INFLUENZA A NEGATIVE NEGATIVE 07/29/2024 12:47 PM SOLID TIRE FINISHER [facility] INFLUENZA B NEGATIVE NEGATIVE 07/29/2024 12:47 PM SOLID TIRE FINISHER [facility] Comment: Interpretation: Negative for Influenza A and B. A negative result does not exclude influenza virus infection. If influenza is circulating in your community, a diagnosis of influenza should be considered based on a patient's clinical presentation and empiric antiviral treatment should be considered, if indicated. If more conclusive testing is needed for hospitalized inpatients, follow-up confirmatory testing with RT-PCR requires a separate order. NASOPHARYNGEAL SWAB / Unknown 07/29/2024 12:00 PM SOLID TIRE FINISHER Chester Locke MD MICROBIOLOGY - GENERAL ORDERA BLES Final Result [facility] [address] [place] [address], * XR CHEST PORTABLE (07/29/2024 11:55 AM SOLID TIRE FINISHER) Anatomical Region Laterality Modality Chest Radiographic Terra ging 07/29/2024 11:5 5 AM SOLID TIRE FINISHER Impressions 07/29/2024 11:59 AM SOLID TIRE FINISHER IMPRESSION: Mild central peribronchial thickening. No apparent acute focal pulmonary infiltrate or consolidation. Ordered By: CHESTER LOCKE Interpreted By: Maximus Lr, 07/29/2024 11:55 AM Narrative 07/29/2024 11:59 AM SOLID TIRE FINISHER [facility] [address] [place], [place] [address] IMAGING STUDIES: XR CHEST PORTABLE DATE: 07/29/2024 11:42 AM HISTORY: cough 53-year-old female. Increased shortness of breath and work of breathing. Productive cough. Viral/cold symptoms for 2-3 days. History of asthma. Reported 80% oxygen saturation on room air on arrival of EMS and was placed on supplemental oxygen. On arrival to emergency department, supplemental oxygen was removed and oxygenation of 98-100% on room air. COMPARISON: PA chest and right ribs 11/21/2020. DISCUSSION: Portable AP upright view of the chest. Heart size is within normal limits. No acute pulmonary vascular congestion. Mild central peribronchial thickening which could be due to reactive airways disease or viral illness. No apparent acute focal pulmonary infiltrate, pulmonary consolidation, pleural effusion, or pneumothorax. No acute skeletal abnormality. Procedure Note Maximus Lr MD - 07/29/2024 [facility] [address] [place], [place] [address] IMAGING STUDIES: XR CHEST PORTABLEDATE: 07/29/2024 11:42 AM HISTORY: cough 53-year-old female. Increased shortness of breath andwork of breathing. Productive cough. Viral/cold symptoms for 2-3 days.History of asthma. Reported 80% oxygen saturation on room air on arrivalof EMS and was placed on supplemental oxygen. On arrival to emergencydepartment, supplemental oxygen was removed and oxygenation of 98-100% onroom air. COMPARISON: PA chest and right ribs 11/21/2020. DISCUSSION: Portable AP upright view of the chest. Heart size is within normal limits. No acute pulmonary vascularcongestion. Mild central peribronchial thickening which could be due to reactiveairways disease or viral illness. No apparent acute focal pulmonaryinfiltrate, pulmonary consolidation, pleural effusion, or pneumothorax. No acute skeletal abnormality. IMPRESSION: Mild central peribronchial thickening. No apparent acute focal pulmonaryinfiltrate or consolidation. Ordered By: CHESTER LOCKE Interpreted By: Maximus Lr, 07/29/2024 11:55 AM us Chester Locke MD GENERAL IMAGING Final Result * PROCALCITONIN (PCT) (07/29/2024 11:37 AM SOLID TIRE FINISHER) PROCALCITONIN <0.05 0.00 - 0.49 NG/ML 07/29/2024 1:24 PM SOLID TIRE FINISHER [facility] 07/29/2024 11:3 7 AM SOLID TIRE FINISHER us Chester Locke MD LABORATORY Final Result [facility] [address] [place] [address], [place] [phone] * (ABNORMAL) COMPREHENSIVE METABOLIC PANEL (07/29/2024 11:37 AM SOLID TIRE FINISHER) [facility] GLUCOSE 98 70 - 99 MG/DL 07/29/2024 12:16 PM [facility] BUN 15 7 - 18 MG/DL 07/29/2024 12:16 PM [facility] CREATININE S/P/B 1.02 0.55 - 1.02 MG/DL 07/29/2024 12:16 PM [facility] SODIUM S/P/B 136 136 - 145 MMOL/L 07/29/2024 12:16 PM [facility] POTASSIUM S/P/B 3.4(L) 3.5 - 5.1 MMOL/L 07/29/2024 12:16 PM [facility] CHLORIDE S/P/B 104 97 - 115 MMOL/L 07/29/2024 12:16 PM [facility] CO2 26.6 21 - 32 MMOL/L 07/29/2024 12:16 PM [facility] CALCIUM S/P/B 9.2 8.5 - 10.1 MG/DL 07/29/2024 12:16 PM [facility] BILIRUBIN TOTAL S/P/B 0.9 0.2 - 1.2 MG/DL 07/29/2024 12:16 PM [facility] Comment: THIS ASSAY IS NOT RECOMMENDED FOR PATIENTS UNDERGOING TREATMENT WITH ELTROMBOPAG DUE TO THE POTENTIAL FOR FALSELY ELEVATED RESULTS. TOTAL PROTEIN S/P/B 8.6(H) 6.4 - 8.2 G/DL 07/29/2024 12:16 PM [facility] ALBUMIN S/P/B 4.0 3.4 - 5.0 G/DL 07/29/2024 12:16 PM [facility] AST 27 15 - 37 U/L 07/29/2024 12:16 PM [facility] ALT 31 14 - 55 U/L 07/29/2024 12:16 PM SOLID TIRE FINISHER [facility] ALKALINE PHOSPHATASE S/P/B 86 50 - 136 U/L 07/29/2024 12:16 PM [facility] ANION GAP 5.4 2 - 10 MMOL/L 07/29/2024 12:16 PM [facility] BUN CREATININE RATIO 14.7 6 - 26 07/29/2024 12:16 PM [facility] A/G RATIO 0.9(L) 1.0 - 2.0 RATIO 07/29/2024 12:16 PM [facility] GFR ESTIMATE 66(L) >90 ML/MIN/1.7 3 M2 07/29/2024 12:16 PM [facility] Comment: NOTE: eGFR is not calculated for patients <18 years of age or gender unknown. This is an estimated GFR calculation using the new CKD EPI creatinine equation without race and so does not require a correction factor for race. This estimated GFR should not be used for calculating drug doses. 07/29/2024 11:3 7 AM SOLID TIRE FINISHER us Chester Locke MD LABORATORY Final Result [facility] [address] [place] [address], [place] [phone] * TROPONIN, QUANT (07/29/2024 11:37 AM SOLID TIRE FINISHER) TROPONIN I HIGH SENSITIVITY 5 <54 ng/L 07/29/2024 12:16 PM SOLID TIRE FINISHER [facility] Comment: HIGH DOSES OF BIOTIN, TROPONIN-SPECIFIC AUTOANTIBODIES, AND ANTIBODY THERAPY CONTAINING HAMA MAY INTERFERE WITH THIS TEST RESULT. CORRELATION TO CLINICAL HISTORY AND PRESENTATION RECOMMENDED. 07/29/2024 11:3 7 AM SOLID TIRE FINISHER us Chester Locke MD LABORATORY Final Result [facility] [address] [place] [address], * Critical Care (07/29/2024 11:25 AM SOLID TIRE FINISHER) Chester Lopez MD - 07/29/2024 11:25 AM SOLID TIRE FINISHER Chester Locke MD 07/29/2024 1:54 PM Critical Care Performed by: Chester Locke MD Authorized by: Chester Locke MD Critical care provider statement: Critical care time (minutes): 32 Critical care time was exclusive of: Separately billable procedures and treating other patients and teaching time Critical care was necessary to treat or prevent imminent or life-threatening deterioration of the following conditions: Respiratory failure Critical care was time spent personally by me on the following activities: Development of treatment plan with patient or surrogate, discussions with consultants, evaluation of patient's response to treatment, examination of patient, obtaining history from patient or surrogate, ordering and performing treatments and interventions, ordering and review of laboratory studies, ordering and review of radiographic studies, pulse oximetry, re-evaluation of patient's condition and review of old charts Care discussed with: admitting provider us Chester Locke MD PROCEDURE/MINOR SURGICAL ORDE RABLES Final Result from Last 3 Months Insurance [employer] Advance Directives Documents on File Type Date Recorded Patient Lan Administrator Expl anation Legal Documents 05/01/2020 12:31 PM RECVD & CMPLTD ATTY REQ. FOR HB BILLS FOR [facility] FOR [employer] * Full Code (Latest Code Status on File) Date Activated Date Inactivated Comments 07/29/2024 2:33 PM 07/30/2024 3:25 PM Care Teams Acid Pump Operator Relationship Specialty Start Date End Date Warren Pardo MD [address] [place] [address] PCP - General INTERNAL MEDICINE 02/14/19
--- OUTSIDE RECORDS SUMMARY | 2024-10-26 13:03 | XMS_ITS | Referral Summary ---
Author Organization [facility] [address] [facility] Address [address] [place] [address] Care Team Providers Care Lieutenant Ballistics Name Role Phone Warren Pardo MD Primary Care Provider Encounters Date Type Department Care Team Description 09/22/2024 2:00 PM CDT Office Visit [facility] [address] [place] [address] 2nd Floor [address] [place] [phone] Janine Andres MD Adhesive capsulitis of left shoulder (Primary Dx) 09/07/2024 Telephone [facility] [address] [place] [address] Advanced [facility] 12th [place] [address] [place] [phone] Janine Andres MD 09/07/2024 Orders Only [facility] [address] [place] [address] Advanced [facility] 12th [place] [address] [place] [address] Janine Andres MD Adhesive capsulitis of left shoulder (Primary Dx); Left shoulder pain, unspecified chronicity 09/07/2024 9:45 AM CDT - 09/07/2024 11:30 AM CDT Surgery [facility] [address] [address] Janine Andres MD ARTHROSCOPY SHOULDER WITH EXTENSIVE DEBRIDEMENT, CAPSULUR RELEASE 09/07/2024 10:37 AM CDT Anesthesia Event [facility] [address] [place] [address] Fidel Martin MD Wilkinson, Christina A., NP 09/07/2024 7:50 AM CDT - 09/07/2024 1:20 PM CDT Hospital Encounter [facility] [address] [place] [address] Janine Andres MD Adhesive capsulitis of left shoulder (Primary Dx); Subacromial bursitis of left shoulder joint; Nontraumatic incomplete tear of left rotator cuff Discharge Disposition: Discharge to home or self care from Last 3 Months Allergies Active Allergy [...] needed for wheezing or shortness of breath 1 Active ergocalciferol (VITAMIN D) 50,000 unit capsuleIndicatio [...] left shoulder 07/12/2024 Left shoulder pain 07/12/2024 Social History Tobacco Use Types Packs/Day Years [...] on file Legal Sex Female 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 Gender Identity Not on file Sexual Orientation [...] 09/07/2024 8:04 AM CDT Plan of Treatment Not on file [...] Procedure Name Priority Date/Time Associated Diagnosis Comments [place] AN PROCEDURE PLACEHOLDER Routine 09/07/2024 10:45 AM CDT KS AN ELECTIVE SUPRAGLOTTIC AIRWAY Routine 09/07/2024 10:45 [...] Beach Chair with Trimano, Breg Sling Shot KS AN PROCEDURE PLACEHOLDER Routine 09/07/2024 9:33 AM CDT BW IP ANE LDA PERIPHERAL NERVE CATHETER Routine 09/07/2024 9:33 AM CDT POCT PREOP SCREEN ([id number]- HBG-HCT) Routine 09/07/2024 8:32 AM CDT POCT HCG, URINE Routine 09/07/2024 7:55 AM CDT from Last 3 Months Results * KS AN ELECTIVE SUPRAGLOTTIC AIRWAY, KS AN PROCEDURE PLACEHOLDER (09/07/2024 10:45 AM CDT) Edita Martínez CRNA - 09/07/2024 10:45 AM CDT Edita [...] BW IP ANE LDA PERIPHERAL NERVE CATHETER, KS AN PROCEDURE PLACEHOLDER (09/07/2024 9:33 AM CDT) Fidel Jamil MD - 09/07/2024 9:33 AM CDT Fidel [...] short-bevel and echogenic Needle gauge: 21 G ([employer] NanoLine 21Gx68) Injection assessment: injection made incrementally [...] Beatriz l Result * POCT Preop screen (imiph-Ah-Zzb-FAA-Ad-Nxa-Hct) (09/07/2024 8:32 AM CDT) K POC 3.9 3.3 - 4.9 mmol/L [...] POCT ORDERABLES - DEVICE Final Result [facility] Department [place] [address] * POCT hCG, urine (09/07/2024 7:55 AM CDT) HCG, ur, POC Negative Negative Lot Number 123 QC Backgroud Clear Acceptable QC Control Line Acceptable Urine 09/07/2024 7:55 AM CDT us Eyad Sotelo MD POINT OF CARE TEST ORDER TITA Final Result from Last 3 Months Insurance [facility] Care Teams Lieutenant Ballistics Relationship Specialty Start Date End Date Warren Pardo MD PCP - General 01/18/19
--- OUTSIDE RECORDS SUMMARY | 2024-10-26 13:03 | XMS_ITS | Clinical Summary ---
Author Organization [facility] [employer] Address [address] [address] Care Team Providers Care Weatherization Installer Name Role Phone Warren Pardo MD Primary Care Provider [phone] Source Comments [facility] [employer],non-owned Affiliates and Associated Physician Practices is amultiple site organization consisting of ambulatory clinics and hospital sitesin [place], [place], [place] and [place]. This disclosure is being madepursuant to the Care Everywhere program and may not contain all information available regarding this patient. Last updated 18.[facility] [employer] Allergies Active Allergy Reactions Criticality Noted Date Comments Penicillins Rash,Itching Medium 10/06/2018 Other reaction(s): Hives Medications * Be aware that medications may not be up to date on this document. Alwaysverify current medications with the patient. albuterol HFA (PROVENTIL; VENTOLIN; PROAIR) 108 (90 Base) MCG/ACT inhaler Inhale 2 puffs by mouth every 6 hours as needed 08/30/2020 Active baclofen (LIORESAL) 10 MG tablet Take 10 mg by mouth 3 times daily as needed 10/15/2021 Active diphenhydrAMINE (BENADRYL) 25 MG capsule Take 25 mg by mouth as directed Active vitamin D, ergocalciferol, (DRISDOL) 1.25 MG (60803 UT) capsule Take 50,000 Units by mouth as directed 10/15/2021 Active gabapentin (NEURONTIN) 300 MG capsule Take 300 mg by mouth 3 times daily 10/15/2021 Active hydroCHLOROthia zide (HYDRODIURIL) 25 MG tablet Take 25 mg by mouth once daily 08/30/2021 Active traMADol (ULTRAM) 50 MG tablet Take 50 mg by mouth every 6 hours as needed 10/12/2021 Active fluticasone propionate (FLONASE) 50 MCG/ACT nasal spray Pickett 1-2 sprays into each nostril once daily 07/27/2021 Active meloxicam (Mobic) 15 MG tablet TAKE 1 TABLET BY MOUTH EVERY DAY. DO NOT TAKE WITH NAPROXEN TABLETS 90 tablet 1 10/28/2023 Active Active Problems No known active problems Social History Tobacco Use Types Packs/Day Years Used Date Smoking Tobacco: Never Smokeless Tobacco: Never Comments Unknown Sex and Gender Information Value Date Recorded Sex Assigned at Not on file Legal Sex Female 1:18 PM CDT Gender Identity Not on file Sexual Orientation Not on file Last Filed Vital Signs Vital Sign Reading Time Taken Comments Blood Pressure 115/81 11/19/2020 7:38 PM CDT Pulse 77 11/19/2020 7:38 PM CDT Temperature 36.8 C (98.3 F) 11/19/2020 7:38 PM CDT Respiratory Rate 16 11/19/2020 7:38 PM CDT [...] SCREENING 1970 LIPID TESTING 1970 MAMMOGRAM 1970 PAP SMEAR 1970 HIV SCREENING 1985 HEPATITIS C SCREENING 10/15/1988 DTAP/TDAP/TD VACCINES (1 - Tdap) 1989 HEPATITIS B VACCINE (1 of 3 - 19+ 3-dose series) 1989 PNEUMOCOCCAL VACCINE 50+ (1 of 1 - PCV) 2020 ZOSTER VACCINE (1 of 2) 2020 COVID-19 VACCINE (1 - 2023-2 5 season) 2024 DEPRESSION SCREENING 06/16/2024 INFLUENZA VACCINE (Season Ended) 2025 HIB VACCINE Aged Out No longer eligi ble based on patient's age to complete this topic HPV VACCINE Aged Out No longer eligi ble based on patient's age to complete this topic MENINGOCOCCAL (Group B) VACC INE SHARED DECISION-MAKING Aged Out No longer eligibl e based on patient's age to complete this topic MENINGOCOCCAL GROUPS A/C/Y/W VACCINE Aged Out No longer eligible b ased on patient's age to complete this topic Insurance [facility] Care Teams Weatherization Installer Relationship Specialty Start Date End Date Warren Pardo MD [address] [address] PCP - General Internal Medicine 10/06/18
[2024-10-26 14:29] LABS: Anion Gap 8 mmol/L (4-12); Blood Urea Nitrogen 9 mg/dL (7-17); Calcium 8.8 mg/dL (8.4-10.2); Carbon Dioxide 29 mmol/L (22-30); Chloride 102 mmol/L (98-107); Estimated Glomerular Filt Rate > 60; Glucose 77 mg/dL (65-110); Potassium 3.9 mmol/L (3.4-5.0); Sodium 139 mmol/L (137-145)
== END 2024-10-26 12:50 | disposition home or self-care (01) ==
LOC: ANHSURGERY 12:56
PROVIDERS: Anesthesiology; Visit Provider Orthopaedic Surgery
DX: R94.31 Abnormal electrocardiogram [ECG] [EKG] (principal); I10 Essential (primary) hypertension; Z79.899 Other long term (current) drug therapy
CPT/HCPCS: 36415; 80048; 93005

== ENCOUNTER 2024-11-01 00:08 | Day surgery (SDC) | payer OTHER, SELFPAY ==
[2024-10-21 13:16] VITALS: BMI 27.3
--- NOTE | 2024-10-21 13:27 | PC.NURSE ---
Addendum entered by Jean-Paul Richardson RN 10/21/24 15:47: Also told to use inhalers if needed. Original Note: Report to the Outpatient Waiting Room, entrance under the green pavilion located off [facility], at time _0830_ on date _[id number]_. Planned Procedure Time: _1030_. Time changes happen often and if your time is changed the preop area will call you the afternoon before. - You and your visitor will be asked to self-screen and do not enter if you have any COVID symptoms. Please call surgeon if you need to reschedule. - A mask is optional within the hospital at this time. Patients may have clear liquids (water, carbonated beverages, clear teas, apple juice) until 3 hours prior to surgery with a maximum of 20 ounces. - No food from midnight until time of surgery and no smoking, or chewing tobacco (or any form of nicotine). No chewing gum, candy or mints. Take only the following medications with a SIP of water on the morning of surgery: __Gabapentin___ DO NOT STOP ANY OF YOUR OTHER PRESCRIPTION MEDICATIONS PRIOR TO SURGERY EXCEPT THE FOLLOWING Hold all vitamins and supplements for 3 days per anesthesiologist. Medications to discontinue per physician __Meloxicam___ Date to take last bfws___[id number]___ Please no make-up, nail ukrainian, hairspray, perfume, deodorant, or body powder the day of surgery. No jewelry (including any body piercings) or valuables the day of surgery, leave them at home. Please take a shower or bath the night before, or the morning of, surgery with an antibacterial soap. Wear comfortable, loose fitting clothing. - Jewelry must be removed prior to entering the operating room. Rings and piercings that are not removed may be cut off. - The hospital will not accept responsibility for valuables. - Please leave all valuables, including medications, at home the day of surgery. If you are going home after surgery, a licensed vacuum truck driver must drive you home. - NO public transportation without another adult if you receive anesthesia. - We recommend that an adult stay with you for 24 hours following discharge. - We also recommend that you do not drive, make important decision, drink alcoholic beverages, or take any drugs that were not prescribed by your health care provider for at least 24 hours after your discharge time. Follow any additional instructions given to you from your surgeon. Telephone instructions given to __Alisia__and asked if any additional questions and then verbalized understanding. Patient advised to call surgeon office or pre surgery nurse liaison [phone] if any additional questions.
--- NOTE | 2024-10-28 08:13 | PM.IMHP ---
H&P: HPI History of Present Illness Date/Time: 10/28/24 08:13 Chief Complaint: Patient has chronic hip pain left. Of note is the fact she also has a back problem. She has failed conservative treatment including injections therapy exercise anti-inflammatory medications steroid pills and time. She remains symptomatic over the trochanteric bursa. Review of Systems Musculoskeletal: Musculoskeletal: Reports arthralgias, Reports joint swelling and Reports stiffness PMFSH Past Medical History Medical History Asthma Chronic back pain Anxiety Pernicious anemia HTN (hypertension), benign Vitamin D deficiency Surgical History Surgical History History of rotator cuff surgery Left should 2024 H/O prior ablation treatment Family History Family History Grandparent Breast cancer Father Hypertension Mother Hypertension Cerebrovascular accident Heart disease Social History Social History (Updated 10/05/24 @ 10:48 by Imani Lynch CMA) Smoking status: Never smoker Second hand tobacco smoke exposure: Yes Alcohol intake: current Alcohol use details: rarely, special occasions Substance use: never Substance use type: does not use Do You Feel Safe in your Home?: Yes Lack of Transportation: No Lack of Food: Never True Current Housing: I Have Housing Concerned About Future Housing: No Difficulty Paying Gas/Electric Bills: YES Difficulty Paying for Meds: No Currently Unemployed: YES Education: High School Diploma/GED Difficulty w/ Childcare or Family Care: No Living arrangements: with family Spiritual care concerns: No Meds Home Medications and Allergies Home Medications Medication Instructions Recorded Confirmed Type gabapentin 300 mg capsule 300 mg PO TID 07/29/23 10/21/24 History hydrochlorothiazide 25 mg tablet 25 mg PO DAILY 07/29/23 10/21/24 History meloxicam 15 mg tablet 15 mg PO DAILY 07/29/23 10/21/24 History omeprazole 40 mg capsule,delayed 40 mg PO DAILY 07/29/23 10/21/24 History release cyclobenzaprine 5 mg tablet 5 mg PO TID PRN muscle spasm 07/22/24 10/21/24 History albuterol sulfate 90 mcg/actuation 1 inh inhalation Q4H 10/05/24 10/21/24 History aerosol inhaler (Ventolin HFA) fluticasone propionate 110 2 inh inhalation Q12H PRN dyspnea 10/21/24 10/21/24 History mcg/actuation HFA aerosol inhaler Allergies Allergy/AdvReac Type Severity Reaction Status Date / Time Penicillins Allergy Hives Verified 10/21/24 13:14 Exam Narrative: On exam she is tender over the trochanteric bursa on the left. She has pain to palpation manipulation. Neurologically she appears to be intact. She walks with an antalgic gait. She has pain with any manipulation of the hip. Eyes: General: appearance normal, both eyes and all related structures Neck: Neck: supple Resp: Effort & Inspection: normal respiratory effort Hip/Pelvis X-Ray 07/22/24 Shoulder X-Ray 07/29/23 Orthopedics Result Report 07/22/24 Cervical Spine X-Ray 01/01/24 Cervical Spine MRI 01/01/24 Lumbar Spine X-Ray 07/29/23 Lumbar Spine MRI 11/23/23 Assessment and Plan Assessment and plan (1) Trochanteric bursitis of left hip: Code(s): M70.62 - Trochanteric bursitis, left hip Status: Acute Assessment and Plan: Patient has hip pain left. She predominantly has trochanteric bursitis. She has failed conservative treatment. I have discussed surgical intervention with her in detail. I discussed risks, benefits, limitations, and alternatives. She understands and agrees like to proceed with surgical debridement. She is well aware the fact that she may not get complete relief from the surgery but has run out of other options. Will proceed per her request discussed.
[2024-11-01] VITALS (10 sets, daily range): BP systolic 114–155; BP diastolic 76–97; PULSE 57–90; RESP 12–18; TEMP 36.2–36.4; O2SAT 97–100; BMI 26.6
--- OUTSIDE RECORDS SUMMARY | 2024-11-01 00:11 | XMS_ITS | Clinical Summary ---
Author Organization [facility] Address [address] [place] [address] Care Team Providers Care Death Surveys Coder Name Role Phone Warren Pardo MD Primary Care Provider [phone] Allergies Active Allergy Reactions Criticality Noted Date [...] Noted Date Diagnosed Date Asthma (HHS/HCC) 07/29/2024 Family History Medical History Relation Comments Stroke Father CO Mother Relation Status Comments Father Mother Alive [...] from your doctor or pharmacy? Never 07/29/2024 [facility] Utilities Answer Date Recorded In the past 12 months has th e [employer], gas, oil, or water company threatened to [...] week 07/29/2024 [facility] often [facility] attend [facility]? More than 4 times per year 07/29/2024 Do you belong to any clubs o r organizations such as sikh groups, unions, fraternal or athletic groups, or [...] medical care, and heating? Somewhat hard 07/29/2024 [facility] - Occupational Stress Questionnaire Answer Date Recorded [...] any time in the past 12 m [facility], were you homeless or living in a fci (including now)? No 07/29/2024 Comments No Sex and Gender Information Value Date Recorded Sex Assigned at Female 07/29/2024 11:15 AM EMG TECHNICIAN Legal Sex Female 4:17 PM CDT Gender Identity Not on file Sexual Orientation Not on file Last Filed Vital Signs Vital Sign Reading Time Taken Comments Blood Pressure 126/79 07/30/2024 11:22 AM EMG TECHNICIAN Pulse 90 07/29/2024 12:10 PM EMG TECHNICIAN Temperature 36.7 C (98.1 F) 07/30/2024 11:22 AM EMG TECHNICIAN Respiratory Rate 20 07/30/2024 5:50 AM EMG TECHNICIAN Oxygen Saturation 98% 07/30/2024 11: 22 AM EMG TECHNICIAN Inhaled Oxygen Concentration - - Weight 73.9 kg (162 lb 14.7 oz) 025 11:20 AM EMG TECHNICIAN Height 165.1 cm (5' 5 ) 07/29/2024 11:2 0 AM EMG TECHNICIAN Body Mass Index 27.11 07/29/2024 11:20 AM EMG TECHNICIAN Plan of Treatment Health Maintenance Due Date [...] (1 of 2) 2020 COVID-19 Vaccine (3 2023-2 5 season) 2024 03/02/2021, 02/05/2021 Meningococcal B Vaccine Aged Out No l onger eligible based on patient's age to complete this topic Meningococcal Vaccine Aged Out No renate warner eligible based on patient's age to complete this topic RSV Immunizations Under 20 Months Aged Out No longer eligible b ased on patient's age to complete this topic Insurance Advance Directives Documents on File Type Date Recorded Patient Entry Tech Expl anation Legal Documents 05/01/2020 12:31 PM RECVD & CMPLTD ATTY REQ. FOR HB BILLS FOR [employer] FOR [employer] * Full Code (Latest Code Status on File) Date Activated Date Inactivated Comments 07/29/2024 2:33 PM 07/30/2024 3:25 PM Care Teams Death Surveys Coder Relationship Specialty Start Date End Date Warren Pardo MD [address] [place] [address] PCP - General INTERNAL MEDICINE 02/14/19
--- OUTSIDE RECORDS SUMMARY | 2024-11-01 00:11 | XMS_ITS | Referral Summary ---
Author Organization [facility] [address] [facility] Address [address] [place] [address] Care Team Providers Care Imaging System Administrator Name Role Phone Warren Pardo MD Primary Care Provider [phone] Encounters Date Type Department Care Team Description 10/27/2024 12:30 PM CDT Office Visit [facility] [address] [place] [address] 2nd Floor [address] [place] [phone] Janine Andres MD Adhesive capsulitis of left shoulder (Primary Dx); Left shoulder pain, unspecified chronicity 09/22/2024 2:00 PM CDT Office Visit [facility] [address] [place] [address] Floor [address] [place] [phone] Janine Andres MD Adhesive capsulitis of left shoulder (Primary Dx) 09/07/2024 Telephone [facility] [address] [place] [address] Advanced [facility] 12th [place] [address] [place] [address] Janine Andres MD 09/07/2024 Orders Only [facility] [address] [place] [address] [facility] 12th [place] [address] [place] [address] Janine Andres MD Adhesive capsulitis of left shoulder (Primary Dx); Left shoulder pain, unspecified chronicity 09/07/2024 9:45 AM CDT - 09/07/2024 11:30 AM CDT Surgery [facility] [address] [place] [address] Janine Andres MD ARTHROSCOPY SHOULDER WITH EXTENSIVE DEBRIDEMENT, CAPSULUR RELEASE 09/07/2024 10:37 AM CDT Anesthesia Event [facility] [address] [place] [address] Fidel Martin MD Wilkinson, Christina A., PRIMARY CARE SALES REPRESENTATIVE 09/07/2024 7:50 AM CDT - 09/07/2024 1:20 PM CDT Hospital Encounter [facility] [address] [place] [phone] Janine Andres MD Adhesive capsulitis of left [...] plain penicillin Medications gabapentin (NEURONTIN) 300 mg capsuleIndicati ons:Neuropathic Pain Take 1 capsule (300 mg total) by mouth 3 (three) times a day Active albuterol HFA (PROVENTIL HFA,VENTOLIN HFA,PROAIR HFA) 90 mcg/actuation inhaler Inhale 2 puffs every 4 (four) hours as needed for wheezing or shortness of breath 021 Active ergocalciferol (VITAMIN D) 50,000 unit capsuleIndicati ons:Vitamin D Deficiency Take 1 capsule (50,000 Units total) by mouth every 30 (thirty) days Active hydroCHLOROthia zide (HYDRODIURIL) 25 mg tabletIndicatio ns:hypertension Take 1 tablet (25 mg total) by mouth every morning Active albuterol 2.5 mg/0.5 mL solution for nebulization Take 0.5 mL (2.5 mg total) by nebulization every 6 (six) hours as needed (SOB) Active omeprazole (PriLOSEC) 40 mg capsule Take by mouth daily Active oxyCODONE (ROXICODONE) 5 mg immediate release tabletIndicatio ns:Pain Take 1 tablet (5 mg total) by mouth every 6 (six) hours as needed for pain 28 tablet 025 Active ketorolac (TORADOL) 10 mg tablet Take 1 tablet (10 mg total) by mouth every 6 (six) hours as needed for pain 12 tablet 025 Active senna-docusate (PERICOLACE) 8.6-50 mg Take 1 tablet by mouth 2 (two) times a day as needed for constipation 30 tablet 025 Active HYDROcodone-alex taminophen (NORCO) 5-325 mg per tabletIndicatio ns:Pain Take 1-2 tablets by mouth every 6 (six) hours as needed for pain 20 tablet 025 Active cyclobenzaprine (FLEXERIL) 10 mg tabletIndicatio ns:Spasm of muscle TAKE 1 TABLET(10 MG) BY MOUTH TWICE DAILY NEEDED FOR MUSCLE SPASMS 30 tablet 025 Active baclofen (LIORESAL) 10 mg tablet Take 1 tablet (10 mg total) by mouth 3 (three) times a day as needed for muscle spasms 2024 Discontinued(A lternate therapy) cyclobenzaprine (FLEXERIL) 10 mg tabletIndicatio ns:Spasm of muscle Take 1 tablet (10 mg total) by mouth 2 (two) times a day as needed for muscle spasms 30 tablet 025 2024 Discontinued Active Problems Problem Noted Date Diagnosed Date [...] on file 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 Minimize further functional decline 2. Maximize quality of life 3. Control pain Strategies: - Activity/exercise program recommendation - Conservative stepwise pain medicine strategy with multi-disciplinary approach - Recommend healthy lifestyle strategies and compensatory methods as needed Procedures Procedure Name Priority Date/Time Associated Diagnosis Comments [place] AN PROCEDURE PLACEHOLDER Routine 09/07/2024 10:45 AM CDT NH AN ELECTIVE SUPRAGLOTTIC AIRWAY Routine 09/07/2024 10:45 AM CDT ARTHROSCOPIC RELEASE - CAPSULAR 09/07/2024 10:40 AM CDT Adhesive capsulitis of left shoulder Left shoulder pain, unspecified chronicity Special Needs Beach Chair with Flora Moreno Sling Shot ARTHROSCOPY SHOULDER WITH EXTENSIVE DEBRIDEMENT 09/07/2024 10:40 AM CDT Adhesive capsulitis of left shoulder Left shoulder pain, unspecified chronicity Special Needs Beach Chair with Flora Moreno Sling Shot [place] AN PROCEDURE PLACEHOLDER Routine 09/07/2024 9:33 AM CDT BW IP ANE LDA PERIPHERAL NERVE CATHETER Routine 09/07/2024 9:33 AM CDT POCT PREOP SCREEN ([id number]- HBG-HCT) Routine 09/07/2024 8:32 AM CDT POCT HCG, URINE Routine 09/07/2024 7:55 AM CDT from Last 3 Months Results * NH AN ELECTIVE SUPRAGLOTTIC AIRWAY, NH AN PROCEDURE PLACEHOLDER (09/07/2024 10:45 AM CDT) [...] of attempts: 1 Ventilation between attempts: none Fidel Martin MD ANESTHESIA ORDERABLES Beatriz l Result * BW IP ANE LDA PERIPHERAL NERVE CATHETER, [place] AN PROCEDURE PLACEHOLDER (09/07/2024 9:33 AM CDT) [...] short-bevel and echogenic Needle gauge: 21 G ([employer] 21Gx68) Injection assessment: injection made incrementally [...] Beatriz l Result * POCT Preop screen (zaatp-Xc-Sft-MSB-Mj-Kgy-Hct) (09/07/2024 8:32 AM CDT) [facility] K POC 3.9 3.3 - 4.9 mmol/L [...] POCT ORDERABLES - DEVICE Final Result [facility] Department [place] [address] * POCT hCG, urine (09/07/2024 7:55 AM CDT) HCG, ur, POC Negative Negative Lot Number 123 QC Backgroud Clear Acceptable QC Control Line Acceptable Urine 09/07/2024 7:55 AM CDT Eyad Sotelo MD POINT OF CARE TEST ORDER TITA Final Result from Last 3 Months Insurance [facility] [place] [place] [address] [facility] Care Teams Imaging System Administrator Relationship Specialty Start Date End Date Warren Pardo MD PCP - General 01/18/19
--- OUTSIDE RECORDS SUMMARY | 2024-11-01 00:11 | XMS_ITS | Clinical Summary ---
Author Organization [place] [id number] Address [address] [place] [address] Care Team Providers Care Rubber Production Machine Operator Name Role Phone Warren Pardo MD Primary Care Provider [phone] Allergies Active Allergy Reactions Criticality Noted Date [...] Description 10/27/2024 12:30 PM CDT Office Visit [facility] [address] [place] [address] 2nd [address] [place] [address] Janine Andres MD Adhesive capsulitis of left shoulder (Primary Dx); Left shoulder pain, unspecified chronicity 09/22/2024 2:00 PM CDT Office Visit [facility] [id number] [place] [address] 2nd [address] [place] [phone] Janine Andres MD Adhesive capsulitis of left shoulder (Primary Dx) 09/07/2024 10:37 AM CDT Anesthesia Event [facility] [address] [place] [id number] Fidel Martin MD Wilkinson, Christina A. INVENTORY MANAGER 09/07/2024 9:45 AM CDT - 09/07/2024 11:[address] [facility] [address] [place] [id number] Janine Andres MD ARTHROSCOPY SHOULDER WITH EXTENSIVE DEBRIDEMENT, CAPSULUR RELEASE 09/07/2024 7:50 AM CDT - 09/07/2024 1:20 PM CDT Hospital Encounter [facility] [address] [place] [id number] Janine Andres MD Adhesive capsulitis of left shoulder (Primary Dx); Subacromial bursitis of left shoulder joint; Nontraumatic incomplete tear of left rotator cuff Discharge Disposition: Discharge to home or self care 09/07/2024 Telephone [facility] Advanced Medicine 12th Floor [address] [phone] Janine Andres MD 09/07/2024 Orders Only 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] Beatriz l Result * POCT Preop screen (oeyoy-Cn-Hio-DLB-Ca-Fyq-Hct) (09/07/2024 8:32 AM CDT) K POC 3.9 [...] LAB POCT ORDERABLES - DEVICE Final Result Performing Organization Address City/State/[facility] Co de Phone Number [facility] Department [place] [address] * POCT hCG, urine (09/07/2024 7:55 AM CDT) HCG, ur, POC Negative Negative Lot Number 123 QC Backgroud Clear Acceptable QC Control Line Acceptable Urine 09/07/2024 7:55 AM CDT us Eyad Sotelo MD POINT OF CARE TEST ORDER TITA Final Result from Last 3 Months Insurance [facility] Care Teams Rubber Production Machine Operator Relationship Specialty Start Date End Date Warren Pardo MD PCP - General 01/18/19
--- OUTSIDE RECORDS SUMMARY | 2024-11-01 00:11 | XMS_ITS | Clinical Summary ---
Author Organization [facility] Address [address] [address] Care Team Providers Care Physicist [place] Name Role Phone Warren Pardo MD Primary Care Provider [phone] Source Comments [facility]),non-owned Affiliates and Associated Physician Practices is amultiple site organization consisting of ambulatory clinics and hospital sitesin [place], [place], [place] and [place]. This disclosure is being madepursuant to the Care Everywhere program and may not contain all information available regarding this patient. Last updated 18.[facility] Allergies Active Allergy Reactions Criticality Noted Date [...] Active vitamin D, ergocalciferol, (DRISDOL) 1.25 MG (13327 UT) capsule Take 50,000 Units by mouth [...] fluticasone propionate (FLONASE) 50 MCG/ACT nasal spray Corinne 1-2 sprays into each nostril once daily [...] [facility] Care Teams Physicist [place] Relationship Specialty Start Date End Date Warren Pardo MD [address] [address] PCP - General Internal Medicine 10/06/18
--- NOTE | 2024-11-01 09:09 | WPDHPUPDATE1 ---
History and Physical Update Update Date/Time: 11/01/24 09:09 History and Physical has been reviewed, including an updated exam of the patient. There are NO changes in the patient's condition. Risks, benefits, and alternatives have been discussed and questions answered. Patient agrees to proceed with procedure. Patient is well aware the fact that there is no guarantee that this will relieve her pain.
--- NOTE | 2024-11-01 09:15 | WPDANESEPPF ---
Anes - Initial Pre Proc Eval Procedure: Operation Date: 11/01/24 10:30 Proposed Procedures p Debridement of Left Trochanteric Bursa and Iliotibial Band Tensor Fascia Cheryl - Kaz Dennis MD Date/Time: 11/01/24 09:15 Surgeon: Kaz Dennis MD Pre Op Diagnosis: chronic trochanteric bursitis Patient Data Age: 54 Gender: F Height: 1.65 m Weight: 74.5 kg Allergies Allergy/AdvReac Type Severity Reaction Status Date / Time Penicillins Allergy Hives Verified 10/21/24 13:14 Home Medications Medication Instructions Recorded Confirmed Type gabapentin 300 mg capsule 300 mg PO TID 07/29/23 10/21/24 History hydrochlorothiazide 25 mg tablet 25 mg PO DAILY 07/29/23 10/21/24 History meloxicam 15 mg tablet 15 mg PO DAILY 07/29/23 10/21/24 History omeprazole 40 mg capsule,delayed 40 mg PO DAILY 07/29/23 10/21/24 History release cyclobenzaprine 5 mg tablet 5 mg PO TID PRN muscle spasm 07/22/24 10/21/24 History albuterol sulfate 90 mcg/actuation 1 inh inhalation Q4H 10/05/24 10/21/24 History aerosol inhaler (Ventolin HFA) fluticasone propionate 110 2 inh inhalation Q12H PRN dyspnea 10/21/24 10/21/24 History mcg/actuation HFA aerosol inhaler Patient hx anesthesia problems: none Family hx anesthesia problems: none Results Review: All pre-operative results and documents have been reviewed as part of the pre-operative evaluation. [facility] Past Medical History Medical History Asthma Chronic back pain Anxiety Pernicious anemia HTN (hypertension), benign Vitamin D deficiency Surgical History Surgical History History of rotator cuff surgery Left should 2024 H/O prior ablation treatment Family History Family History Grandparent Breast cancer Father Hypertension Mother Hypertension Cerebrovascular accident Heart disease Social History Social History Smoking status: Never smoker Second hand tobacco smoke exposure: Yes Alcohol intake: current Alcohol use details: rarely, special occasions Substance use: never Substance use type: does not use Do You Feel Safe in your Home?: Yes Lack of Transportation: No Lack of Food: Never True Current Housing: I Have Housing Concerned About Future Housing: No Difficulty Paying Gas/Electric Bills: YES Difficulty Paying for Meds: No Currently Unemployed: YES Education: High School Diploma/GED Difficulty w/ Childcare or Family Care: No Living arrangements: with family Spiritual care concerns: No Anes - Eval Final PreProcedure Day of Procedure 11/01/24 09:15 Patient weight: overweight Heart: regular rate and rhythm Lungs: clear to auscultation Airway: Mallampati scale class II Neurological: alert and oriented Last oral intake: >/= 8 hours ASA classification: III Emergent: no Anesthetic plan: proceed Anesthesia type and monitoring: general LMA and standard monitoring Results Review: All pre-operative results and documents have been reviewed as part of the pre-operative evaluation. Informed Consent: The patient's anesthetic plan and its attendant risks and benefits were discussed with the patient/family/POA. Questions were solicited and answers provided to the satisfaction of the patient/family/POA.
[2024-11-01] MEDS: ceFAZolin 2 GM/D5W 50 ML 2 GM/50 ML BAG IVPB (09:29)
[2024-11-01] MEDS: LACTATED RINGERS 1,000 ML 30 ML IV CONT ×2 (09:34→10:34)
[2024-11-01] MEDS: ACETAMINOPHEN 500 MG TABLET 1000 MG PO (09:34)
[2024-11-01] MEDS: KETOROLAC 15 MG/ML VIAL (*BKC) IV PUSH (09:34)
--- NOTE | 2024-11-01 10:10 | W.PM.PROC2 ---
Procedure Note - Detailed Date of Procedure 11/01/24 Pre-op Diagnosis Chronic trochanteric bursitis, Left Hip Post-op Diagnosis Same Procedure Performed Trochanteric bursa debridement and tensor fascia marlee release. 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 A general anesthetic was administered. She was sterilely prepped and draped in usual manner. The left hip was placed up. A longitudinal incision made over the trochanter. Dissection carried down to the fascia. The trochanteric extensor fascia marlee was found and split over the trochanteric area. A large bursa was found this was surgically debrided. Hemostasis was obtained, and the wound was thoroughly irrigated. The tensor fascia was then closed loosely with a 2. Ethibond sutures. The hip moved smoothly under the fascia at this time. The wound was then closed with 2-0 Vicryl and igor. Sterile dressing applied patient left the operating was satisfactory condition. Estimated Blood Loss 100 Complications No immediate complications Condition Stable Disposition PACU [facility] Billing Surgery - Charge Forward: Surgery Billing ([id number] Trochanteric bursa debridement)
[2024-11-01] MEDS: fentaNYL CITRATE INJ (*CRX) 100 MCG/2 ML VIAL 25 MCG IV PUSH ×8 (10:57→11:44)
[2024-11-01] MEDS: oxyCODONE HCL (*CRX) 5 MG TAB IR PO (12:18)
== END 2024-11-01 13:15 | disposition home or self-care (01) ==
PROVIDERS: Visit Provider Orthopaedic Surgery
PROC: (CPT 27062; principal; 2024-11-01 10:30)
DX: M70.62 Trochanteric bursitis, left hip (principal); G89.29 Other chronic pain; M54.9 Dorsalgia, unspecified; I10 Essential (primary) hypertension; F41.9 Anxiety disorder, unspecified; D51.0 Vitamin B12 deficiency anemia due to intrinsic factor deficiency; E55.9 Vitamin D deficiency, unspecified; J45.909 Unspecified asthma, uncomplicated; Z79.51 Long term (current) use of inhaled steroids; Z79.899 Other long term (current) drug therapy; Z98.890 Other specified postprocedural states; Z80.3 Family history of malignant neoplasm of breast; Z82.49 Family history of ischemic heart disease and other diseases of the circulatory system
CPT/HCPCS: 27062; A9270; J0690; J1100; J1885; J2250; J2405; J2704; J3010; J7120

== ENCOUNTER 2025-05-08 07:53 | Outpatient (CLI) | payer OTHER, SELFPAY ==
--- NOTE | ~2025-05-08 | MR_ITS ---
EXAMINATION: MR lumbar spine wo con DATE: 05/08/2025 08:38 INDICATION: Spinal stenosis, lumbosacral region. TECHNIQUE: Magnetic resonance imaging (MRI) of the lumbar spine was performed without intravenous contrast. COMPARISON: Lumbar spine MRI 11/23/2023 FINDINGS: There is 7 degrees levocurvature of lumbar spine. Vertebral body heights are normal. Intervertebral disc heights are normal. The distal spinal cord signal intensity is normal. The conus medullaris is at L1. The following disc levels are specifically discussed: L1-L2: The disc does not extend beyond the endplate margin. There is mild bilateral facet joint osteoarthritis. There is no neural foraminal stenosis. There is no central canal stenosis. L2-L3: The disc does not extend beyond the endplate margin. There is mild bilateral facet joint osteoarthritis. There is no neural foraminal stenosis. There is no central canal stenosis. L3-L4: The disc is bulging. There is severe bilateral facet joint osteoarthritis. There is mild bilateral neural foraminal stenosis. There is no central canal stenosis. L4-L5: The disc is bulging and has an annular fissure. There is severe bilateral facet joint osteoarthritis. There is mild bilateral neural foraminal stenosis. There is mild central canal stenosis. L5-S1: The disc is bulging. There is moderate bilateral facet joint osteoarthritis. There is mild bilateral neural foraminal stenosis. There is mild central canal stenosis. IMPRESSION: 1. Mild lumbar spondylosis, stable from 11/23/2023. Reviewed, dictated and finalized at location E. UNTS RECEIVABLE CLERK
== END 2025-05-08 07:54 | disposition home or self-care (01) ==
PROVIDERS: Visit Provider Nurse Practitioner Adult Health
DX: M43.06 Spondylolysis, lumbar region (principal); M48.07 Spinal stenosis, lumbosacral region; M54.17 Radiculopathy, lumbosacral region
CPT/HCPCS: 72148